=== PATIENT | male | born 1970 | race Caucasian/White ===

== ENCOUNTER → 2017-02-02 | Outpatient (CLI) | payer OTHER ==
[2017-02-02 13:09] LABS: Blood Urea Nitrogen 18 mg/dL (9-20); Non-African American GFR(MDRD) >60 (>60 ml/min/1.73 sqM)
--- NOTE | 2017-02-02 14:35 | CT ---
EXAMINATION TYPE: CT ChestAbdPelvis w con DATE OF EXAM: 02/02/2017 2:14 PM COMPARISON: May 01, 2011 HISTORY: Patient complains of generalized weakness, fatigue, lightheadedness, and weight loss. CT DLP: 1883 mGycm CONTRAST: CT scan of the chest, abdomen and pelvis is performed with Oral Contrast and with IV Contrast, patien t injected with 100 mL of Omnipaque 300. CT Chest: LUNGS: The lungs are clear and free of infiltrate or atelectasis. No pulmonary nodule or mass is det ected. No pleural effusion or CT evidence of interstitial lung disease. MEDIASTINUM: Thoracic aorta is of normal caliber. The heart is not enlarged. No evidence for media stinal mass or adenopathy. HILAR STRUCTURES: No evidence for mass. No hilar adenopathy is appreciated. OTHER: Mild bilateral gynecomastia. CONTRAST CT ABDOMEN AND PELVIS FINDINGS: LIVER/GB: There is evidence of hepatic steatosis. No calcified gallstones. No space occupying hepat ic lesion. Biliary tree is of normal caliber. PANCREAS: No inflammation. No distinct mass. SPLEEN: No splenic enlargement. No lesion seen. ADRENALS: No nodule. No thickening. KIDNEYS/BLADDER: No hydronephrosis. No nephrolithiasis. No disctinct renal mass. There is urinary bladder wall thickening which may reflect a cystitis. Correlate clinically. BOWEL: Normal appendix. Normal bowel caliber. No inflammation. GENITAL ORGANS: No gross abnormality. LYMPH NODES: No greater than 1cm abdominal or pelvic lymph nodes are appreciated. AORTA: No significant abnormality. OSSEOUS STRUCTURES: Postoperative and degenerative changes lumbar spine. OTHER: No significant additional abnormality is seen. IMPRESSION: 1. Mild urinary bladder wall thickening may reflect cystitis. 2. Hepatic steatosis. 3. Mild gynecomastia.
== END | disposition home or self-care (01) ==
LOC: RADCTMAIN 12:19
PROVIDERS: ATTEND Internal Medicine Hematology & Oncology
DX: N32.89 Other specified disorders of bladder (principal); K76.0 Fatty (change of) liver, not elsewhere classified; N62 Hypertrophy of breast; R07.9 Chest pain, unspecified; Z88.1 Allergy status to other antibiotic agents; Z88.2 Allergy status to sulfonamides; Z91.040 Latex allergy status
CPT/HCPCS: 82565; 84520; 71260; 74177; 36415; Q9967

== ENCOUNTER → 2017-06-10 | Outpatient (CLI) | payer OTHER ==
[2017-06-10 13:18] VITALS: BP 129/83; PULSE 73; RESP 16; TEMP 98.2
--- NOTE | 2017-06-10 13:33 | P.HPIM ---
History of Present Illness H&P Date: 06/10/17 Chief Complaint: neck and low back pain This is a 46-year-old patient referred by Dr. Jones for chronic pain in neck and right arm (and low back and LLE, but less severe). Patient has been taking medications from primary care physician including Varney medications with some relief. Patient denies adverse drug effects from medications. Patient also denies new-onset weakness, bowel/bladder incontinence, or any other signs or symptoms of cauda equina syndrome. There are no signs of acute intoxication, and no indications of medication diversion or overuse. Patient notes that pain worsens significantly with neck flexion and lateral rotation and improves with neck extension and medication and use of marijuana. Patient has used several types of medications for pain, including NSAIDS, MARIJUANA, OPIOIDS (Varney) and BENZODIAZEPINES. Patient HAS had surgery (L-spine, not C-spine). Patient HAS had injections previously (TPI by Tasha). Patient HAS NOT had physical therapy recently. In addition to above, 13-point review of systems is also negative for chest pain , shortness of breath, changes in vision, changes in hearing, new onset weakness , abdominal pain, diarrhea, extreme fatigue, malaise, fever, skin changes, homicidal or suicidal ideation, or bowel or bladder incontinence. 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 Neuro: CN II-XII grossly intact, muscle strength lower extremities PRESERVED Medications and Allergies Home Medications Medication Instructions Recorded Confirmed Type Atomoxetine HCl [Strattera] 40 mg PO DAILY 06/10/17 06/10/17 History Citalopram Hydrobromide [CeleXA] 40 mg PO DAILY 06/10/17 06/10/17 History Hydrocodone/Acetaminophen [[place] 1 tab PO TID 06/10/17 06/10/17 History 7.5-325] OLANZapine [ZyPREXA] 20 mg PO DAILY 06/10/17 06/10/17 History risperiDONE [RisperDAL] 0.5 mg PO TID 06/10/17 06/10/17 History traZODone HCL 50 mg PO DAILY 06/10/17 06/10/17 History Allergies Allergy/AdvReac Type Severity Reaction Status Date / Time clindamycin Allergy Rash/Hives Verified 06/10/17 12:58 sulfamethoxazole Allergy Dyspnea Verified 06/10/17 12:59 [From Bactrim] trimethoprim [From Bactrim] Allergy Dyspnea Verified 06/10/17 12:59 Results Comments: MRI lumbar spine without contrast dated 12/14/2015 demonstrates postsurgical changes with prior intra-articular stabilization screws placed at L4, L5, and S1 there is mild hypertrophic changes with posterior facets at the L3-L4 and L4- L5 levels. MRI of the cervical spine dated 12/14/2015 demonstrates a circumferential discogenic protrusion posteriorly at the C6-C7 level without cord compression or displacement. There are prominent osteophytic spurs projecting anteriorly and posteriorly from the inferior endplates of the sixth cervical vertebra. There is no syrinx. X-ray of the lumbar spine dated 08/24/2014 demonstrates postop changes noted at the L4-L5 and S1 levels status post posterior fusion there is intervertebral space material present at the L4-L5 level and loss of disc height at the L5-S1 level. There is multilevel spondylosis. Assessment and Plan (1) Lumbar postlaminectomy syndrome Status: Chronic (2) Spondylosis of lumbar region without myelopathy or radiculopathy Status: Chronic (3) Cervical disc herniation Status: Chronic Plan: 1. Explanation: Opioid and psychological risk scores were reviewed. Diagnoses , prognoses, and multiple treatment options including but not limited to physical therapy, interventional therapies, adjuvant medical therapies, narcotic medication therapies, and surgery were discussed with the patient and all questions were answered to the patient's satisfaction. 2. Opioid agreement: no opioids prescribed today 3. Counseling: The patient was counseled extensively on SMOKING CESSATION, BODY MASS INDEX, EXERCISE. Specifically, the patient was instructed regarding the importance of smoking cessation, weight control, and exercise in the context of both chronic pain and overall health. 4. Procedures: cervical MINA series C7-T1 5. Consultations: none 6. Investigations: none 7. Medications: none prescribed 8. Disposition: f/u for procedure as scheduled PQRS measures: 1-Patient's medications are documented in the chart. 2-Tobacco use is positive, counseling given 3-Patient has not had a pneumococcal vaccine. 4-Advanced care planning discussed, patient unable to give. 5-Opioid contract NOT signed with the patient. 6-Pain positive, follow-up visit or procedure scheduled 7-Patient's blood pressure measured and documented, and patient will follow up with the primary care due to hypertension. 8-Patient's weight was measured, and body mass index ABOVE the normal limits, and counseling was done. Patient instructed to follow up with PCP. 9-Patient WAS NOT identified as an unhealthy alcohol user. Time with Patient: Greater than 30
== END | disposition home or self-care (01) ==
LOC: PNWHC3 12:40
PROVIDERS: ATTEND Anesthesiology
DX: M50.20 Other cervical disc displacement, unspecified cervical region (principal); M47.816 Spondylosis without myelopathy or radiculopathy, lumbar region; M96.1 Postlaminectomy syndrome, not elsewhere classified; Z88.1 Allergy status to other antibiotic agents; Z88.2 Allergy status to sulfonamides; Z79.899 Other long term (current) drug therapy
CPT/HCPCS: 99211

== ENCOUNTER 2017-09-16 17:12 | Emergency (ER) | payer OTHER ==
[2017-09-16 17:19] VITALS: BP 143/84; PULSE 86; RESP 18; TEMP 97.9
[2017-09-16] MEDS ORDERED: ORPHENADRINE 30 MG/ML 2 ML VIAL IM STA (17:47)
[2017-09-16] MEDS ORDERED: KETOROLAC 30 MG/ML 1 ML VIAL IM STA (17:47)
--- NOTE | 2017-09-16 17:49 | ED ---
Back Pain HPI - General Chief Complaint: Back Pain/Injury Stated Complaint: Back pain Time Seen by Provider: 09/16/17 17:27 Source: patient Limitations: no limitations - History of Present Illness Initial Comments: 47-year-old male patient presents to the emergency department today for evaluation of lower back pain. 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 He states that the morning after shoveling he woke with muscle tightness and pain across his lower back. He states that he does have a history of chronic low back pain and has had surgery before. He states that he has had symptoms similar to this but is been a long time. He states that the pain does radiate down both legs mostly to the right side. He states he does have some chronic numbness and tingling to the right lower leg and foot, this has not changed. He states pain worsens with movement, sitting up , or standing. Pain improves with lying flat. He denies any saddle anesthesia. Denies any loss of bowel or bladder control. Denies any falls or injury to the low back causing symptoms. Patient denies any recent rash, fever, chills, shortness breath, chest pain, abdominal pain, nausea, vomiting, diarrhea, constipation, dizziness, weakness, hematuria, dysuria, urinary urgency, urinary frequency, headache, visual changes, or any other complaints. - Related Data Home Medications Medication Instructions Recorded Confirmed Atomoxetine HCl [Strattera] 40 mg PO DAILY 06/10/17 06/10/17 Citalopram Hydrobromide [CeleXA] 40 mg PO DAILY 06/10/17 06/10/17 Hydrocodone/Acetaminophen [[place] 1 tab PO TID 06/10/17 06/10/17 7.5-325] OLANZapine [ZyPREXA] 20 mg PO DAILY 06/10/17 06/10/17 risperiDONE [RisperDAL] 0.5 mg PO TID 06/10/17 06/10/17 traZODone HCL 50 mg PO DAILY 06/10/17 06/10/17 Previous Rx's Medication Instructions Recorded Cyclobenzaprine [Flexeril] 10 mg PO TID #15 tab 09/16/17 Hydrocodone/Acetaminophen [[place] 1 tab PO Q6HR PRN #15 tab 09/16/17 5-325] Ibuprofen [Motrin] 600 mg PO Q8HR PRN #30 tab 09/16/17 Allergies Allergy/AdvReac Type Severity Reaction Status Date / Time clindamycin Allergy Rash/Hives Verified 09/16/17 17:16 sulfamethoxazole Allergy Dyspnea Verified 09/16/17 17:16 [From Bactrim] trimethoprim [From Bactrim] Allergy Dyspnea Verified 09/16/17 17:16 Review of Systems ROS Statement: Those systems with pertinent positive or pertinent negative responses have been documented in the HPI. ROS Other: All systems not noted in ROS Statement are negative. Past Medical History Past Medical History: Diabetes Mellitus Additional Past Medical History / Comment(s): bipolar. Diet-controlled diabetic History of Any Multi-Drug Resistant Organisms: None Reported Past Surgical History: Back Surgery Additional Past Surgical History / Comment(s): Multiple back surgeries; fusion of L4-5, L5-S1 Replacement at L4-5 2006. Laminectomy - 1998 Past Psychological History: ADD/ADHD, Anxiety, Bipolar, Depression Smoking Status: Current every day smoker Past Alcohol Use History: None Reported Past Drug Use History: Marijuana General Exam Limitations: no limitations General appearance: alert, in no apparent distress, other (This is a well- developed, well-nourished adult male patient in no acute distress. Vital signs upon presentation are temperature 97.9F, pulse 86, respirations 18, blood pressure 143/84, pulse ox 97% on room air.) Eye exam: Present: normal appearance, PERRL, EOMI. Absent: scleral icterus, conjunctival injection, periorbital swelling ENT exam: Present: normal exam, normal oropharynx, mucous membranes moist Neck exam: Present: normal inspection. Absent: tenderness, meningismus, lymphadenopathy Respiratory exam: Present: normal lung sounds bilaterally. Absent: respiratory distress, wheezes, rales, rhonchi, stridor Cardiovascular Exam: Present: regular rate, normal rhythm, normal heart sounds. Absent: systolic murmur, diastolic murmur, rubs, gallop, clicks GI/Abdominal exam: Present: soft, normal bowel sounds. Absent: distended, tenderness, guarding, rebound, rigid Extremities exam: Present: other (Skin to the lower chart is pink, warm, and dry. Cap refill less than 3 seconds. Pedal and posttibial pulses are 2+ and equal bilaterally.) Back exam: Present: normal inspection, paraspinal tenderness (Surrounding the upper lumbar vertebrae.), other (Positive straight leg test bilateral) Neurological exam: Present: alert, oriented X3, CN II-XII intact Psychiatric exam: Present: normal affect, normal mood Skin exam: Present: warm, dry, intact, normal color. Absent: rash Course Vital Signs 09/16/17 17:16 Temperature 97.9 F Pulse Rate 86 Respiratory 18 Rate Blood Pressure 143/84 O2 Sat by Pulse 97 Oximetry Medical Decision Making - Medical Decision Making 47-year-old male patient presented to the emergency department today for evaluation of lower back pain. Patient physical examination does reveal positive straight leg test bilaterally. Patient also exhibits paraspinal tenderness surrounding the upper lumbar vertebra. Patient does have a history of chronic lower back pain, states he has had symptoms similar to this in the past but has been some time. Patient is neurologically intact. No loss of bowel or bladder control, no saddle anesthesia. He is able to ambulate but with pain. He will be given IM Toradol and Norflex here in the department. He' ll be given prescriptions for pain management as well as muscle relaxers. 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 He is instructed to follow-up with his primary care physician for recheck in 1-2 days. He is instructed to return here immediately for any new, worsening, or concerning symptoms. He verbalizes understanding and agrees with this plan. Disposition Clinical Impression: Acute exacerbation of chronic low back pain Disposition: HOME SELF-CARE Condition: Good Instructions: Acute Low Back Pain (ED) Additional Instructions: Apply muscle rubs and warm compresses to the painful areas. Gentle range of motion exercises. Establishing keep appointment with pain management. Take medications as directed. Return here immediately for any new, worsening, or concerning symptoms. Prescriptions: Cyclobenzaprine [Flexeril] 10 mg PO TID #15 tab Hydrocodone/Acetaminophen [[place] 5-325] 1 tab PO Q6HR PRN #15 tab PRN Reason: Pain Ibuprofen [Motrin] 600 mg PO Q8HR PRN #30 tab PRN Reason: Pain Referrals: Luz Jones MD [Primary Care Provider] - 1-2 days Time of Disposition: 17:49
== END 2017-09-16 18:04 | disposition home or self-care (01) ==
LOC: EC 17:12
DX: M54.5 Low back pain (principal); G89.29 Other chronic pain; R20.0 Anesthesia of skin; R20.2 Paresthesia of skin; F90.9 Attention-deficit hyperactivity disorder, unspecified type; F32.9 Major depressive disorder, single episode, unspecified; F41.9 Anxiety disorder, unspecified; F17.200 Nicotine dependence, unspecified, uncomplicated; Z98.890 Other specified postprocedural states; Z79.891 Long term (current) use of opiate analgesic; Z79.899 Other long term (current) drug therapy; Z88.1 Allergy status to other antibiotic agents; Z88.2 Allergy status to sulfonamides; X50.9XXA Other and unspecified overexertion or strenuous movements or postures, initial encounter; Y92.69 Other specified industrial and construction area as the place of occurrence of the external cause; Y93.H1 Activity, digging, shoveling and raking
CPT/HCPCS: 99283; 96372 ×2; J2360; J1885

== ENCOUNTER → 2020-04-03 | Outpatient (CLI) | payer OTHER ==
--- NOTE | 2020-04-03 14:09 | XR ---
EXAM TYPE: LUMBAR SPINE X RAY SERIES COMPARISON: 08/24/2014 HISTORY: Lower back pain and numbness TECHNIQUE: 8 views are submitted including flexion-extension lateral views. FINDINGS: Postsurgical changes noted involving the lower lumbar spine. No evidence of spondylolisthesis. Degene rative disc disease L2-3 and L3-L4. Upon flexion and extension alignment appears to be stable as visualized. Foraminal encroachment at L4 -5 and L5-S1 as well as L3-L4 suspected. Vascular calcifications are seen. No compression deformities . IMPRESSION: 1. Postsurgical changes. 2. Multilevel degenerative disc disease.
== END | disposition home or self-care (01) ==
LOC: RADXRMAIN 13:38
PROVIDERS: ATTEND Neurological Surgery
DX: M51.36 Other intervertebral disc degeneration, lumbar region (principal); M43.26 Fusion of spine, lumbar region; Z98.890 Other specified postprocedural states
CPT/HCPCS: 72114

== ENCOUNTER → 2020-05-18 | Outpatient (CLI) | payer OTHER ==
--- NOTE | 2020-05-18 13:41 | MR ---
EXAMINATION TYPE: MR lumbar spine wo con DATE OF EXAM: 05/18/2020 1:10 PM COMPARISON: 12/14/2015 HISTORY: Fusion of spine, lumbar region Multiplanar, MultiSpin echo imaging of the lumbar spine was performed. L1-L2: Normal disc appearance without desiccation. No herniation, protrusion or disc bulging. No ca nal stenosis is present. Foramina are patent bilaterally. L2-L3: Normal disc appearance without desiccation. No herniation, protrusion or disc bulging. No ca nal stenosis is present. Foramina are patent bilaterally. L3-L4: Normal disc appearance without desiccation. No herniation, protrusion or disc bulging. No ca nal stenosis is present. Foramina are patent bilaterally. L4-L5: Postsurgical changes of lumbar fusion and lumbar laminectomy noted. Pedicular screws are in pl minda. Alignment is anatomic. No evidence for recurrent or residual disease. No central stenosis. Radha vickie are patent bilaterally. L5-S1: Decompressive laminectomy changes. Pedicular screws are in place. Moderate disc desiccation wi th posterior disc bulge and osseous ridging resulting in left lateral recess stenosis. Mild bilateral right greater than left foraminal encroachment. Lumbar segments are intact. No paraspinal masses are identified. Conus medullaris has a normal appe arance. IMPRESSION: 1. Able postoperative appearance L4-5 and L5-S1. 2. Posterior disc bulge and ridging at L5 resulting in left lateral recess stenosis.
== END | disposition home or self-care (01) ==
LOC: RADMRIMAIN 12:33
PROVIDERS: ATTEND Neurological Surgery
DX: M51.26 Other intervertebral disc displacement, lumbar region (principal); M48.061 Spinal stenosis, lumbar region without neurogenic claudication; Z98.1 Arthrodesis status
CPT/HCPCS: 72148

== ENCOUNTER → 2020-07-11 | Outpatient (CLI) | payer OTHER ==
--- NOTE | 2020-07-11 17:20 | XR ---
EXAMINATION TYPE: XR cervical spine w flex/ext DATE OF EXAM: 07/11/2020 TECHNIQUE: Frontal, lateral neutral/flexion/extension, oblique, and open mouth view of the cervical s pine are obtained. HISTORY: M48.062 Spinal Stenosis Lumbar region . History of C5-C6 fusion September 2019. Injury a few weeks ago with pain and numbness right side of neck into right hand since incident. COMPARISON: Cervical radiograph 08/24/2014. FINDINGS: Anterior fusion device of C6-C7 with interbody spacer device. On swimmer's view of the cerv ical spine is seen entirety through the level of T1. On lateral view the cervical spine is incomplete ly visualized from C1 thru the C6 level, and the shoulders are obscuring the C6-T1 vertebral bodies o n lateral neutral/flexion/extension views. There is minimal grade 1 anterolisthesis of C3 on C4 which is unchanged with flexion and extension. Normal alignment without evidence of acute fracture or disl ocation. The pre-vertebral soft tissue appears within normal limits. Neural foramina demonstrate bony encroachment at C3-C4 and C6-C7 on the right, and C6-C7 on the left. The atlantoaxial relationship i s within normal limits on the open mouth view. IMPRESSION: 1. No acute fracture or dislocation is seen in the cervical spine. 2. Anterior fusion of C6-C7. The shoulders obscure this level on flexion and extension views and the refore instability is not assessed at this level. 3. Grade 1 anterolisthesis of C3 on C4, unchanged with flexion and extension. 4. Bilateral neural foramina bony encroachment as above.
== END | disposition home or self-care (01) ==
LOC: RADXRMAIN 13:33
PROVIDERS: ATTEND Neurological Surgery
DX: M48.062 Spinal stenosis, lumbar region with neurogenic claudication (principal); Z98.1 Arthrodesis status
CPT/HCPCS: 72052

== ENCOUNTER 2020-12-02 15:41 | Inpatient (IN) | payer OTHER ==
[~2020-12-02 15:41] MED LIST changes: -BENZOCAINE/MENTHOL LOZENG 1 EACH LOZENGE MUCOUS MEM PRN; -HYDROcodone/APAP 5-325MG 1 EACH TAB PO PRN; -HYDROmorphone 0.5 MG/0.5 ML SYRINGE IVP PRN; -HYDROmorphone 1 MG/ML 1 ML SYRINGE IVP PRN; -HYDROmorphone 2 MG/ML 1 ML SYRINGE IVP PRN; -NON FORMULARY DRUG (Citalopram Hydrobromide [Celexa] 40 MG Tablet) PO SCH; -OLANZAPINE 20 MG PO SCH; -ONDANSETRON 4 MG/2 ML VIAL IVP PRN; -SENNOSIDES-DOCUSATE SODIUM 1 EACH TAB PO SCH; -SODIUM CHLORIDE 0.9% 1,000 ML IV SCH; -VANCOMYCIN IV PER PHARMACY 1 EACH MISC MISCELLANE PRN; +ceFAZolin 3,000 MG in SODIUM CHLORIDE 0.9% IRRIGATIO 3,000 ML IRRIGATION PRN; -diazePAM 5 MG TAB PO PRN
[2020-12-02] MEDS ORDERED: ONDANSETRON 4 MG/2 ML VIAL ONE (16:01)
[2020-12-02] MEDS ORDERED: LACTATED RINGERS 1,000 ML IV ONE ×2 (16:15→19:35)
[2020-12-02] MEDS ORDERED: ONDANSETRON 4 MG/2 ML VIAL IVP ONE (16:15)
[2020-12-02] MEDS ORDERED: DEXAMETHASONE SOD PHOSPHATE 4 MG/ML 1 ML VIAL IVP ONE (16:16)
[2020-12-02] MEDS ORDERED: MIDAZOLAM 2 MG/2 ML VIAL ONE (18:48)
[2020-12-02] MEDS ORDERED: SUCCINYLCHOLINE CHLORIDE 100 MG/5 ML SYR IV ONE (18:48)
[2020-12-02] MEDS ORDERED: GLYCOPYRROLATE 0.2 MG/ML 2 ML VIAL ONE (18:48)
[2020-12-02] MEDS ORDERED: LIDOCAINE 1% INJ 10MG/ML (20 ML MDV) ONE (18:48)
[2020-12-02] MEDS ORDERED: VANCOMYCIN 1,000 MG VIAL ONE (18:48)
[2020-12-02] MEDS ORDERED: fentaNYL (PF) 50 MCG/ML 2 ML AMP ONE (18:48)
[2020-12-02] MEDS ORDERED: ALBUTEROL HFA INHALER INHALATION ONE (18:48)
[2020-12-02] MEDS ORDERED: NALOXONE 0.4 MG/ML 1 ML VIAL ONE (18:48)
[2020-12-02] MEDS ORDERED: HYDROmorphone (PF) 1 MG/ML ONE (18:48)
[2020-12-02] MEDS ORDERED: NEOSTIGMINE 1 MG/ML 10 ML VIAL ONE (18:48)
[2020-12-02] MEDS ORDERED: PROPOFOL 10 MG/ML 20 ML VIAL IV ONE (18:48)
[2020-12-02] MEDS ORDERED: ROCURONIUM 10 MG/ML (5 ML VIAL) IV ONE (18:48)
[2020-12-02] MEDS ORDERED: HYDROmorphone 0.5 MG/0.5 ML SYRINGE IVP ONE (21:50)
[2020-12-02] MEDS ORDERED: HYDROmorphone 2 MG/ML 1 ML SYRINGE IVP PRN (23:38)
[2020-12-02] MEDS ORDERED: diazePAM 5 MG TAB PO PRN (23:40)
[2020-12-02] MEDS ORDERED: NALOXONE 0.4 MG/ML 1 ML VIAL IVP PRN (23:42)
[2020-12-03] MEDS: HYDROmorphone 1 MG/ML 1 ML SYRINGE IVP PRN ×4 (00:33→19:18)
[2020-12-03] MEDS: SODIUM CHLORIDE 0.9% 1,000 ML IV SCH ×2 (00:45→07:01)
--- NOTE | 2020-12-03 06:33 | XR ---
EXAMINATION TYPE: XR lumbar spine 2 or 3V DATE OF EXAM: 12/02/2020 CLINICAL HISTORY: Lumbar spine surgery today. TECHNIQUE: Portable frontal crosstable lateral view of lumbar spine obtained immediately intraoperati vely. COMPARISON: Lumbar spine x-ray April 03, 2020. FINDINGS: There is interval removal of posterior interpedicular rods and screws transfixing L4-S1 lev els. Persistent artificial disc material L4-L5 level. Moderate disc space narrowing L5-S1 level redem onstrated. Alignment is stable and satisfactory. IMPRESSION: As above.
[2020-12-03] MEDS: SENNOSIDES 8.6 MG TAB PO SCH (06:59)
[2020-12-03] MEDS: HYDROcodone/APAP 7.5-325MG 1 EACH TAB PO PRN ×3 (08:39→23:11)
[2020-12-03] MEDS ORDERED: CITALOPRAM HYDROBROMIDE 20 MG TAB PO SCH (09:00)
[2020-12-03] MEDS ORDERED: VANCOMYCIN 1,750 MG in SODIUM CHLORIDE 0.9% 500 ML 500 ML IVPB ONE (09:00)
[2020-12-03] MEDS ORDERED: VANCOMYCIN IV PER PHARMACY 1 EACH MISC MISCELLANE PRN (09:00)
[2020-12-03] MEDS ORDERED: OLANZapine 10 MG TAB PO SCH (09:00)
--- NOTE | 2020-12-03 09:00 | P.PN ---
Progress Note - Text Progress Note Date: 12/03/20 Orthopedic Spine: History of present illness: Patient is a pleasant 50-year-old male who is seen and examined at the bedside following removal of lumbosacral hardware with irrigation and debridement at the lumbosacral spine and left gluteu. Patient states he is doing well postsurgically. He was able to ambulate to the restroom last night. He is ambulating multiple times without significant difficulty. He has some pain at the surgical site the states it is well-controlled. He's not currently complaining of a lower extremity weakness or radiculopathy. He is able to move his legs independently. He is having some saturation of his dressing which has been reinforced. He is currently being seen by medicine at the bedside. Currently does not complain of nausea, vomiting, fever, or chills. Patient states pain has been adequately controlled. Patient is eating and voiding freely without difficulty. He has no complaints at the bedside. Patient is currently waiting for consultation with infectious disease as well as medicine. Patient is currently on vancomycin IV. Culture results taken during surgical intervention are pending. We also discussed with medicine to obtain a cooling machine. Physical Exam Lumbar Fusion: Status post surgical day number 1 Patient is awake, alert, and oriented 3 Vital signs stable Good chest excursion with deep inspiration and expiration Dorsiflexion, plantarflexion, and extensor hallucis longus positive sustained bilaterally No signs or symptoms of DVT; no calf pain; pneumatic cuffs not currently intact bilateral lower extremities Dressing is saturated; no erythema, purulence, or signs of infection Dressing is removed and new dressing is applied during physical examination with nonstick Telfa, 4 x 4, ABDs, and tape Some slow active drainage from the surgical site which appears to be blood; no purulent discharge from the surgical site Iodoform gauze and desmond remain intact at the surgical site Patient is able to perform adequate range of motion bilateral lower extremities without difficulty Neurovascularly intact bilaterally lower extremities Assessment: Status post removal of lumbosacral hardware Status post irrigation and debridement of lumbosacral spine infection and left gluteal infection History of L4-5 and L5-S1 lumbar fusion in 2007 Low back pain Hypertension Impression Plan: 1. Ambulate as tolerated; work with Physical Therapy to increase mobilization 2. Continue pain control with IV and oral medications 3. Dressing has been removed and changed to nonstick Telfa, 4 x 4, ABDs and tape; we will continue with dressing changes as needed; will also plan to obtain cooling machine 4. Consultation has been placed with medicine for medical management for patient's other medical diagnoses 5. Consultation has been placed with infectious disease; patient currently on vancomycin; IV antibiotic medication may be change at the discretion of infectious disease; cultures are currently pending 6. We will continue to follow the patient closely; we discussed patient will most likely remain the hospital over the next several days as we will wait for culture results and patient will most likely be discharged home with a PICC line intact 7. Patient can follow-up with Guy Saucedo PA-C or Dr. Sathish Washburn at [facility] in 2-3 weeks following discharge
--- NOTE | 2020-12-03 11:27 | P.CONS ---
History of Present Illness - Reason for Consult Consult date: 12/03/20 Medical management - History of Present Illness HISTORY OF PRESENT ILLNESS This is a 50-year-old male patient of Dr. Engel with past history of asthma, bipolar disorder, chronic back pain with multiple back surgeries. Patient was admitted under the care of Dr. Washburn and underwent removal of lumbar sacral hardware with irrigation debridement of a lumbar sacral spine and left gluteal abscess. Patient is postop day #1. Patient states that he continues to have pain to the area of a 7-8 out of 10 with medication. He does have numbness and tingling to the left most the time. He states this started as a bump that he felt on his left lateral lumbar region but was very tender and it enlarged to the point of the size of a grapefruit. He denies any fever or chills. He states he has pressure back pain that radiates down his legs. He states he has been losing balance which is new for him and he is utilizing a cane for ambulation. Patient is currently on vancomycin and consult in place with infectious disease. Cultures are in progress. Lab work from December 02 was CBC and a CMP which were unremarkable. Urinalysis was clear and negative for infection. EKG was a sinus bradycardia. REVIEW OF SYSTEMS Constitutional: No fever, no chills, no night sweats. No weight change. No weakness, fatigue or lethargy. No daytime sleepiness. EENT: No headache. No blurred vision or double vision, no loss of vision. No loss of Hearing, no ringing in the ears, no dizziness. No nasal drainage or congestion. No epistaxis. No sore throat. Lungs: No shortness of breath, cough, no sputum production. No wheezing. Cardiovascular: No chest pain, no lower extremity edema. No palpitations. No paroxysmal nocturnal dyspnea. No orthopnea. No lightheadedness or dizziness. No syncopal episodes. Abdominal: No abdominal pain. No nausea, vomiting. No diarrhea. No constipation. No bloody or tarry stools.. No loss of appetite. Genitourinary: No dysuria, increased frequency, urgency. No urinary retention. Musculoskeletal: No myalgias. No muscle weakness, no gait dysfunction, no frequent falls. Reports back pain. No neck pain. Integumentary: Reports wounds, no lesions. No rash or pruritus. No unusual bruising. No change in hair or nails. Neurologic: No aphasia. No facial droop. No change in mentation. No head injury. No headache. No paralysis. No paresthesia. Psychiatric: No depression. No anxiety. No mood swings. Endocrine: No abnormal blood sugars. No weight change. No excessive sweating or thirst. No cold intolerance. SOCIAL HISTORY Patient is a smoker one to 2 small cigarettes per day for the past 3 years. He denies any alcohol use. Is currently unemployed due to back problems. 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 He lives at home with his mother. There are no steps in the home.. FAMILY HISTORY Mother is alive with history of hypertension, diabetes. No history of coronary artery disease. Father at age 56 from coronary artery disease. Patient has 1 brother with no major medical problems. He has 2 daughters with no major medical problems. PHYSICAL EXAMINATION Gen: This is a 50-year-old male. He is resting in bed laying on his right side. He appears to be in no acute distress. HEENT: Head is atraumatic, normocephalic. Pupils equal, round. Sclerae is anicteric. NECK: Supple. No JVD. No lymphadenopathy. No thyromegaly. LUNGS: Clear to auscultation. No wheezes or rhonchi. No intercostal retracti ons. HEART: Regular rate and rhythm. No murmur. ABDOMEN: Soft. Bowel sounds are present. No masses. No tenderness. BACK: Large dressing in place of the lumbar area that is saturated with serosanguineous fluid. EXTREMITIES: No pedal edema. No calf tenderness. NEUROLOGICAL: Patient is awake, alert and oriented x3. Cranial nerves 2 through 12 are grossly intact. ASSESSMENT AND PLAN 1. Status post removal of lumbar sacral hardware with irrigation debridement of a lumbar sacral spine and left gluteal abscess, postop day #1. Patient is currently on vancomycin. Consult with infectious disease. Cultures are in progress. Pain management and activity per orthopedics. 2. Bipolar disorder. Patient resumed on Zyprexa 20 mg at bedtime and Celexa 40 mg at bedtime. 3. Mild intermittent asthma. Stable without exacerbation. 4. GI prophylaxis. Protonix. 5. DVT prophylaxis. Heparin subcu, start tomorrow if okay with orthopedics. DISCHARGE PLAN Home with [facility] and IV antibiotics. Impression and plan of care have been directed as dictated by the signing physician. Roselia Echevarria nurse practitioner acting as scribe for signing physician. Past Medical History Past Medical History: Diabetes Mellitus Additional Past Medical History / Comment(s): bipolar. Diet-controlled diabetic History of Any Multi-Drug Resistant Organisms: None Reported Past Surgical History: Back Surgery Additional Past Surgical History / Comment(s): Multiple back surgeries; fusion of L4-5, L5-S1 Replacement at L4-5 2006. Laminectomy - 1998 Past Psychological History: ADD/ADHD, Anxiety, Bipolar, Depression Smoking Status: Current every day smoker Past Alcohol Use History: None Reported Past Drug Use History: Marijuana Medications and Allergies Home Medications Medication Instructions Recorded Confirmed Type Citalopram Hydrobromide [CeleXA] 40 mg PO DAILY 06/10/17 12/02/20 History Hydrocodone/Acetaminophen [[place] 1 tab PO TID 06/10/17 12/02/20 History 7.5-325] OLANZapine [ZyPREXA] 20 mg PO DAILY 06/10/17 12/02/20 History Ibuprofen [Motrin] 600 mg PO Q8HR PRN #30 tab 09/16/17 12/02/20 Rx Allergies Allergy/AdvReac Type Severity Reaction Status Date / Time clindamycin Allergy Rash/Hives Verified 12/02/20 16:06 Penicillins Allergy Unknown Verified 12/02/20 16:13 sulfamethoxazole Allergy Dyspnea Verified 12/02/20 16:06 [From Bactrim] trimethoprim [From Bactrim] Allergy Dyspnea Verified 12/02/20 16:06 Physical Exam Vitals: Vital Signs Temp Pulse Resp BP BP Pulse Ox 12/03/20 02:10 98.0 F 84 16 135/83 96 12/02/20 23:35 81 118/80 97 12/02/20 23:15 75 108/69 98 12/02/20 23:00 72 123/80 98 12/02/20 22:40 98.1 F 74 16 118/76 94 L 12/02/20 22:15 88 16 122/74 99 12/02/20 22:00 76 16 136/72 95 12/02/20 21:48 97.1 F L 76 16 153/82 96 12/02/20 15:59 97.9 F 75 18 119/83 97 Intake and Output 12/02/20 12/03/20 12/03/20 22:59 06:59 14:59 Intake Total 2101 Output Total 700 450 Balance 1401 -450 Intake: IV 1551 Oral 550 Output: Urine 500 450 Estimated Blood Loss 200 Other: # Voids 2 Weight 89.8 kg Results Labs: Microbiology - Last 24 Hours (Table) 12/02/20 21:00 Gram Stain - Preliminary Buttock Wound Culture - Preliminary 12/02/20 21:00 Gram Stain - Preliminary Buttock Wound Culture - Preliminary 12/02/20 21:00 Gram Stain - Preliminary Back Wound Culture - Preliminary 12/02/20 21:00 Anaerobic Culture - Preliminary Buttock 12/02/20 21:00 Fungal Culture - Preliminary Buttock 12/02/20 21:00 Fungal Culture - Preliminary Back 12/02/20 21:00 Anaerobic Culture - Preliminary Buttock 12/02/20 21:00 Fungal Culture - Preliminary Buttock 12/02/20 21:00 Anaerobic Culture - Preliminary Back
--- NOTE | 2020-12-03 12:26 | P.OP ---
Date of Procedure: 12/02/20 Preoperative Diagnosis: Paraspinal abscess and left gluteal abscess with infected hardware History of lumbar spinal fusion L4 to S1 12 years ago Low back pain Postoperative Diagnosis: Same with findings of solid fusion L4-S1 Anesthesia: GETA Pathology: other (Subcutis tissue one at the gluteal abscess and one at the deep spinal implant at S1 and along the vertebrae) Condition: stable Disposition: PACU Description of Procedure: BRIEF OPERATIVE NOTE Preoperative Diagnosis:Paraspinal abscess and left gluteal abscess with infected hardware History of lumbar spinal fusion L4 to S1 12 years ago Low back pain Postoperative Diagnosis:Paraspinal abscess and left gluteal abscess with infected hardware History of lumbar spinal fusion L4 to S1 12 years ago Low back pain Findings of solid fusion L4 to S1 Procedure: Irrigation and excisional debridement of left gluteal abscess 10 x 10 x 5 cm Irrigation and excisional debridement of paraspinal abscess L4 to S1 3 x 2 x 2 cm Removal of deep hardware L4 L5 S1 pedicle screws and rods found to be intact and in total Surgeon: Dr. Washburn Customs Examiner: Guy Lang is present throughout the entire the case persistence during positioning, dissection, exposure, visualization, and all crucial elements of the case as well as closure. Anesthesia: General anesthesia Estimated blood loss: Approximately 200 mL Complications: Findings of expected abscess, with specimen taken from subcutaneous culture gluteal abscess culture and deep spinal hardware culture Components implanted: No new implants but with removal of deep pedicle screws from L4-L5 and S1 with 6 screws to rods and cross-link Disposition: To recovery room in good stable condition. OPERATIVE INDICATIONS The patient has been having issues in their lower back and lower extremities. The patient has been having increasing low back pain over the past 6 months. He is known to our service as he had lumbar spine fusion from L4-S1 12 years ago with our service. He actually did adequately from his surgery and was able to return to his regular work. He says however over the past several years he has not been working. He was lost to follow-up and apparently had some increased pain at his lower back about 4 or 5 years ago and underwent epidural steroid injections at that point. He says that those did not give him significant relief. He had further injury decreased symptoms at his cervical spine one year ago and underwent surgical intervention with Dr. Britt. He says his neck has been doing well. Over the past 6 months he has been developing increasing pain in his lower back and toward his left gluteal area. He noticed some fullness and a mass at that area which had workup and evaluation and aspiration several weeks ago. The patient says that they found pus at the area and he was started on oral Keflex. He had referral back to Dr. Britt who sent him back to our service for further evaluation and treatment. He had significant workup which showed significant fluid collection for left gluteal area and extending toward the hardware at L5 and S1. We felt he had a paraspinal abscess and infected hardware with a medial abscess. He was not having any neurologic decline in the was no evidence of epidural extension. We scheduled him for urgent open irrigation and excisional debridement with removal of hardware as we felt that this would give the best chance of clearing the infection. His hardware appeared to be intact there was some haloing at the S1 screws but the fusion appeared to be stable particularly at the interbody space at L4 5. We discussed various treatment options including surgery, and the patient wishes to proceed with surgery We discussed the risk, patient's alternatives and benefits of s urgery including but not limited to, risk of bleeding risk of infection, risk of need for further surgery, risk of decreased, loss of motion, loss of function, nerve damage, paralysis, heart attack, blindness and . OPERATIVE SUMMARY After discussing all the risks, patient alternatives and benefits at length, the patient elected to proceed with surgical intervention, signed informed consent, and presented for their procedure. The patient was seen and examined in the preoperative holding area and the surgical site was marked. The patient was given antibiotics and brought to the operating room. He had been on oral Keflex for the past several weeks prior to presentation. The patient was sedated and intubated by anesthesia in standard fashion. The patient was positioned on to the operating room table in a prone position on the appropriate frame which was well-padded and well molded. We were careful to pad any bony prominences and pressure points. We were careful to maintain the patient's cervical spine and good neutral alignment and position throughout. The patient was prepped and draped in a normal standard fashion. An appropriate timeout and keystone protocol performed. We were able to proceed with the surgery. There was some erythema around the incision site approximately 3 x 2 cm at the inferior aspect of his prior incision. I made incision loosely his prior i ncision site. There was immediate pus at the subcutaneous space and we took a culture from this area was gross purulent deep yellow pus. I was able to dissect down further and there was significant scar tissue formation and secured seedling thick tissue without significant pliability. I was able to dissect over towards left side and we had a large pocket of pus from the gluteal area. It was approximately 60-80 mL of pus from that area. He has gross purulent. It did not seem to extend into the musculature but seemed to be deep subcutaneous space at the gluteus. It is proximally 10 x 10 x 6 cm. The wound was copiously irrigated and suctioned dry after these cultures were taken. When I had to excise some of the tissue and some of the denuded tissue from the area. This gave further clean base. I was able to then dissect further down after irrigation and suction. I dissected down through the thick scar tissue to the paraspinal space. I was able to expose the screw heads bilaterally and the cross-link from L4-S1. Further dissection revealed that there was a pocket of fluid at the the S1 screw on the right. This possibly 3 x 2 x 2 cm. Deep cultures around that screw and the Vertebral space were taken. I further expose the area there was significant bone formation and I was able to remove the hardware with the cross-link the rods and the screws at L4-L5 and S1. All the hardware is checked and found to be in total. There does not seem to be any extension of the purulence. On the paraspinal space. The wound was copiously irrigated and suctioned dry. There is no evidence of any epidural abscess. There is no motion between the vertebral bodies. I felt there was solid fusion. There did not seem to be any rent toward the epidural space and I did not explore the epidural space. I had to excise tissue and to do the tissue around the paravertebral space particularly around S1 on the right for appropriate excisional debridement. With this completed we again did copious irrigation and suction with greater than 3 L of irrigant. It appeared to be clean and dry without any further purulence or pus. We will to proceed with closure. The fascial layer was closed with #1 PDS TransFix. A subcutaneous iodoform gauze was placed at the gluteal pocket and the subcutaneous tissues closed with 2-0 PDS and the skin was closed with desmond leaving the iodoform gauze available to drain. The wound was cleaned and dried and dressed with Adaptic 4 x 4's ABDs and tape. incision was made at the midline longitudinally over the appropriate levels. Dissection was taken down subcutaneously to the level of the fascia which was split midline. Dissection was taken over the lamina. Intraoperative fluoroscopy was taken which showed a marker at the appropriate level. With the appropriate level positively confirmed, we were able to proceed with laminectomy. The wound was copiously irrigated and suctioned dry as had been done periodically throughout the case. I performed a laminectomy with a combination of curettes and a high-speed bur and Kerrison rongeurs. A small medial facetectomy was performed again further access. A partial foraminotomy was also performed. Portions of the ligamentum flavum were taken down to expose the dura and traversing nerve root. I was able to mobilize the traversing nerve root and gain access to the disc space. Note was made of obvious compression from the disc. Protecting the soft tissue structures, a small annulotomy was established. I was able to perform discectomy and remove any extruded disc fragments and any loose fragments from within the disc itself. There is some disc desiccation noted. I tried to preserve the disc annulus that appeared stable. There were no further extruded fragments noted. There is no evidence of dural tear or leak. Good hemostasis maintained. The wound was copiously irrigated and suctioned dry. Good decompression and discectomy was noted. The drapes were broken down. The patient was gently rolled back onto their hospital bed being careful to maintain their cervical spine and good neutral alignment and position. They were woken up by anesthesia, extubated, and br ought to the recovery room in good stable condition. The patient will be admitted to the hospital for appropriate postoperative care, infectious disease consultation, IV antibiotics, medical management and monitoring. We will continue to follow them closely about the postoperative course.
[2020-12-03] MEDS: VANCOMYCIN 1,500 MG in SODIUM CHLORIDE 0.9% 250 ML IVPB SCH ×2 (15:07→23:11)
[2020-12-03] MEDS: CITALOPRAM HYDROBROMIDE 20 MG TAB PO SCH (20:47)
[2020-12-03] MEDS: OLANZapine 10 MG TAB PO SCH (20:47)
--- NOTE | 2020-12-03 23:57 | CONS ---
CONSULTATION DATE OF SERVICE: 12/03/2020 REASON FOR CONSULTATION: Paraspinal abscess. HISTORY OF PRESENT ILLNESS: The patient is a 50-year-old male who is status post lumbar spinal fusion L4 to S1 12 years ago. The patient seemed to be having a problem with low back pain that has been going on for almost 6 months without any history of any trauma. He describes the pain to the back to be more of a dull aching to sharp almost 10/10 in severity with no weakness down the legs or bowel or bladder problems. No high-grade fever or chills. The patient has been evaluated in the outpatient setting by Orthopedics and the patient has been diagnosed with infected lumbosacral hardware and gluteal abscess to the left gluteal area. The patient is status post I and D of the left gluteal abscess,10 out of 10 and 2.5 cm, I and D, excision, debridement of the paraspinal abscess and removal of deep hardware. Culture has been obtained which is currently pending. Patient empirically started on antibiotics . Infectious disease was consulted for further management of antibiotic therapy. REVIEW OF SYSTEMS: Positive points have been mentioned in HPI. Rest of the systems are negative. PAST MEDICAL HISTORY: Chronic back pain, has bipolar disorder. PAST SURGICAL HISTORY: Multiple back surgeries including L4 to S1 fusion. SOCIAL HISTORY: The patient smokes according to respiratory. Denies drinking or drug use. FAMILY HISTORY: Mother history of diabetes and hypertension. ALLERGIES: TO CLINDAMYCIN, PENICILLIN, SULFA MEDICATIONS: Include the patient is currently on [place], heparin, Dilaudid, Narcan, Zyprexa, vancomycin, pharmacy to dose. PHYSICAL EXAMINATION: Blood pressure is 101/63, pulse of 73, temperature 98.5. She is 98% on room air. General description is a middle-aged male lying in bed in no distress. HEENT: Examination shows no pallor or scleral icterus. Oral mucous membranes dry. NECK: Trachea central. No thyromegaly. LUNGS: Unlabored breathing. Clear to auscultation with no wheeze or crackles HEART S1, S2. Regular rate and rhythm. ABDOMEN soft. No tenderness. No guarding. No rigidity. EXTREMITIES: No edema of the feet. SKIN examination: No rash or mass palpable. NEUROLOGICAL: Patient is awake, alert, oriented. Mood and affect normal. LABS: Cultures currently pending. DIAGNOSTIC IMPRESSION AND PLAN: Patient with lumbar paraspinal abscess with infected hardware with left gluteal abscess status post drainage of the abscess and removal of the hardware, likely from a gram- positive skin yaz less likely Gram-negative infection. PLAN: Vancomycin, pharmacy to dose, target of 15 while waiting for the culture to finalize. The patient likely will need a PICC line for outpatient IV antibiotic therapy. Continue supportive care. MMADRIL / PARMINDERN: [id number] / MTDD
[2020-12-04] MEDS: ACETAMINOPHEN TAB 325 MG TAB PO PRN ×2 (02:34→08:06)
[2020-12-04] MEDS: SODIUM CHLORIDE 0.9% 1,000 ML IV SCH ×2 (02:35→08:07)
[2020-12-04 07:52] LABS: African American GFR (CKD) >90 (>60 ml/min/1.73 sqM); Non-African American GFR(CKD) >90 (>60 ml/min/1.73 sqM)
[2020-12-04] MEDS: VANCOMYCIN 1,500 MG in SODIUM CHLORIDE 0.9% 250 ML IVPB SCH ×3 (08:05→23:30)
[2020-12-04] MEDS: HYDROmorphone 1 MG/ML 1 ML SYRINGE IVP PRN ×3 (08:06→19:07)
[2020-12-04] MEDS: PANTOPRAZOLE 40 MG TABLET PO SCH (08:06)
[2020-12-04] MEDS: SENNOSIDES 8.6 MG TAB PO SCH (08:06)
[2020-12-04] MEDS: HEPARIN SODIUM,PORCINE 5,000 UNIT/ML 1 ML VIAL SQ SCH ×2 (08:06→21:12)
[2020-12-04] MEDS ORDERED: ENOXAPARIN 40 MG/0.4 ML SYRINGE SQ SCH (09:00)
[2020-12-04 09:57] LABS: HCT 35.4 % (39.0-53.0); MCH 32.3 pg (25.0-35.0); MCHC 32.9 g/dL (31.0-37.0); MCV 97.9 fL (80.0-100.0); Mean Platelet Volume 7.3; Platelet Count 238 k/uL (150-450); RBC 3.61 m/uL (4.30-5.90); WBC 5.1 k/uL (3.8-10.6)
[2020-12-04 09:59] LABS: ALT 12 U/L (4-49); AST 19 U/L (17-59); African American GFR (CKD) >90 (>60 ml/min/1.73 sqM); Albumin 2.8 g/dL (3.5-5.0); Alkaline Phosphatase 48 U/L (38-126); Anion Gap 5 mmol/L; Blood Urea Nitrogen 8 mg/dL (9-20); Calcium 7.6 mg/dL (8.4-10.2); Carbon Dioxide 22 mmol/L (22-30); Chloride 109 mmol/L (98-107); Globulin 2.8 g/dL; Glucose 137 mg/dL (74-99); Non-African American GFR(CKD) >90 (>60 ml/min/1.73 sqM); Potassium 3.5 mmol/L (3.5-5.1); Sodium 136 mmol/L (137-145); Total Bilirubin 0.1 mg/dL (0.2-1.3); Total Protein 5.6 g/dL (6.3-8.2)
[2020-12-04 10:00] LABS: HGB 11.7 gm/dL (13.0-17.5)
--- NOTE | 2020-12-04 10:26 | P.PN ---
Progress Note - Text Progress Note Date: 12/04/20 Orthopedic Spine: History of present illness: Patient is a pleasant 50-year-old male who is seen and examined at the bedside following removal of lumbosacral hardware with irrigation and debridement at the lumbosacral spine and left gluteus. Patient states he is doing well postsurgically. He needs to be tinues to be ambulate to the restroom. He is ambulating multiple times without significant difficulty. He has some pain at the surgical site the states it is well-controlled. He's not currently complaining of a lower extremity weakness or radiculopathy. He is able to move his legs independently. He continues to have some saturation of his dressing which has been reinforced. Currently does not complain of nausea, vomiting, fever, or chills. He did experience some fevers over night. Medicine has ordered blood cultures. Patient states pain has been adequately controlled. Patient is eating and voiding freely without difficulty. He has no complaints at the bedside. Patient is currently waiting for consultation with infectious d isashwinie as well as medicine. Patient is currently on vancomycin IV. Culture results taken during surgical intervention are pending. We also discussed with medicine to obtain a cooling machine. He is being seen by medicine and infectious disease. Physical Exam Lumbar Fusion: Status post surgical day number 1 Patient is awake, alert, and oriented 3 Vital signs stable Good chest excursion with deep inspiration and expiration Dorsiflexion, plantarflexion, and extensor hallucis longus positive sustained bilaterally No signs or symptoms of DVT; no calf pain; pneumatic cuffs not currently intact bilateral lower extremities Dressing is saturated; no erythema, purulence, or signs of infection Dressing is removed and new dressing is applied during physical examination with nonstick Telfa, 4 x 4, ABDs, and tape Some slow active drainage from the surgical site which appears to be blood; no purulent discharge from the surgical site Iodoform gauze is removed; Farida remain intact at the surgical site Patient is able to perform adequate range of motion bilateral lower extremities without difficulty Neurovascularly intact bilaterally lower extremities Assessment: Status post removal of lumbosacral hardware Status post irrigation and debridement of lumbosacral spine infection and left gluteal infection History of L4-5 and L5-S1 lumbar fusion in 2007 Low back pain Hypertension Impression Plan: 1. Ambulate as tolerated; work with Physical Therapy to increase mobilization 2. Continue pain control with IV and oral medications 3. Dressing has been removed and changed to nonstick Telfa, 4 x 4, ABDs and tape; we will continue with dressing changes as needed; will also plan to obtain cooling machine 4. Patient will continue to be seen by medicine for medical management for patient's other medical diagnoses 5. Patient will continue to be seen by infectious disease; patient currently on vancomycin; IV antibiotic medication may be change at the discretion of infectious disease; cultures are currently pending; blood cultures pending 6. We will continue to follow the patient closely; we discussed patient will most likely remain the hospital over the next several days as we will wait for culture results and patient will most likely be discharged home with a PICC line intact 7. Patient can follow-up with Guy Saucedo PA-C or Dr. Sathish Washburn at [facility] in 2-3 weeks following discharge
--- NOTE | 2020-12-04 14:29 | P.PN ---
Subjective Progress Note Date: 12/04/20 HISTORY OF PRESENT ILLNESS This is a 50-year-old male patient of Dr. Engel with past history of asthma, bipolar disorder, chronic back pain with multiple back surgeries. Patient was admitted under the care of Dr. Washburn and underwent removal of lumbar sacral hardware with irrigation debridement of a lumbar sacral spine and left gluteal abscess. Patient is postop day #1. Patient states that he continues to have pain to the area of a 7-8 out of 10 with medication. He does have numbness and tingling to the left most the time. He states this started as a bump that he felt on his left lateral lumbar region but was very tender and it enlarged to the point of the size of a grapefruit. He denies any fever or chills. He states he has pressure back pain that radiates down his legs. He states he has been losing balance which is new for him and he is utilizing a cane for ambu lation. Patient is currently on vancomycin and consult in place with infectious disease. Cultures are in progress. Lab work from December 02 was CBC and a CMP which were unremarkable. Urinalysis was clear and negative for infection. EKG was a sinus bradycardia. 12/04: A Chin has dry dressing in place to the back area. No breakthrough bleeding or drainage. Patient states that he did okay during the night and slept somewhat. He is able to move all extremities. He states he was up walking last night. He denies any chest pain or shortness of breath. Temperature max 102.2. Patient did have repeat blood culture obtained yesterday. Repeat blood cultures ordered for this morning. Heart rate 83, blood pressure 133/74, pulse ox 90% on room air. Repeat blood work reveals W BC of 5.1, hemoglobin 11.7. Sodium 136, potassium 3.5, chloride 109, CO2 22, BUN 8 and creatinine 0.81. Blood sugar 137. All wound cultures are in progress. Patient is continued on vancomycin. REVIEW OF SYSTEMS Constitutional: Demented fever, no chills, no night sweats. No weight change. No weakness, fatigue or lethargy. No daytime sleepiness. EENT: No headache. No blurred vision or double vision, no loss of vision. No loss of Hearing, no ringing in the ears, no dizziness. No nasal drainage or congestion. No epistaxis. No sore throat. Lungs: No shortness of breath, cough, no sputum production. No wheezing. Cardiovascular: No chest pain, no lower extremity edema. No palpitations. No paroxysmal nocturnal dyspnea. No orthopnea. No lightheadedness or dizziness. No syncopal episodes. Abdominal: No abdominal pain. No nausea, vomiting. No diarrhea. No constipation. No bloody or tarry stools.. No loss of appetite. Genitourinary: No dysuria, increased frequency, urgency. No urinary retention. Musculoskeletal: No myalgias. No muscle weakness, no gait dysfunction, no frequent falls. Reports back pain. No neck pain. Integumentary: Reports wounds to lumbar area, no lesions. No rash or pruritus. No unusual bruising. No change in hair or nails. Neurologic: No aphasia. No facial droop. No change in mentation. No head injury. No headache. No paralysis. No paresthesia. Psychiatric: No depression. No anxiety. No mood swings. Endocrine: No abnormal blood sugars. No weight change. No excessive sweating or thirst. No cold intolerance. PHYSICAL EXAMINATION Gen: This is a 50-year-old male. He is resting in bed laying on his right side. He appears to be in no acute distress. HEENT: Head is atraumatic, normocephalic. Pupils equal, round. Sclerae is anicteric. NECK: Supple. No JVD. No lymphadenopathy. No thyromegaly. LUNGS: Clear to auscultation. No wheezes or rhonchi. No intercostal retractions. HEART: Regular rate and rhythm. No murmur. ABDOMEN: Soft. Bowel sounds are present. No masses. No tenderness. BACK: Large dressing in place of the lumbar area that is saturated with serosanguineous fluid. EXTREMITIES: No pedal edema. No calf tenderness. NEUROLOGICAL: Patient is awake, alert and oriented x3. Cranial nerves 2 through 12 are grossly intact. ASSESSMENT AND PLAN 1. Status post removal of lumbar sacral hardware with irrigation debridement of a lumbar sacral spine and left gluteal abscess, postop day #2. Patient is currently on vancomycin. Consult with infectious disease. Cultures are in progress. Pain management and activity per orthopedics. 2. Sepsis secondary to left gluteal abscess, present on admission. Repeat blood cultures have been obtained, wound cultures in process. ID consult appreciated. Continue vancomycin. 3. Bipolar disorder. Patient resumed on Zyprexa 20 mg at bedtime and Celexa 40 mg at bedtime. 4. Mild intermittent asthma. Stable without exacerbation. 5. GI prophylaxis. Protonix. 6. DVT prophylaxis. Heparin subcu, start tomorrow if okay with orthopedics. DISCHARGE PLAN Home with [facility] care and IV antibiotics. Impression and plan of care have been directed as dictated by the signing physician. Roselia Echevarria nurse practitioner acting as scribe for signing physician. Objective - Vital Signs Vital signs: Vital Signs Temp 102.2 F H 12/04/20 07:54 Pulse 83 12/04/20 07:54 Resp 16 12/04/20 07:54 BP 133/74 12/04/20 07:54 Pulse Ox 98 12/04/20 07:54 Intake & Output 12/03/20 12/04/20 12/04/20 18:59 06:59 18:59 Output Total 200 2500 Balance -200 -2500 Output: Urine 200 2500 Other: Voiding Method Toilet Urinal - Labs CBC & Chem 7: 12/04/20 09:17 12/04/20 09:17 Labs: Microbiology - Last 24 Hours (Table) 12/02/20 21:00 Gram Stain - Preliminary Buttock Wound Culture - Preliminary 12/02/20 21:00 Gram Stain - Preliminary Back Wound Culture - Preliminary 12/02/20 21:00 Gram Stain - Preliminary Buttock Wound Culture - Preliminary
[2020-12-04] MEDS ORDERED: VANCOMYCIN TROUGH DUE 1 EACH MISC MISCELLANE ONE (15:00)
[2020-12-04] MEDS: OLANZapine 10 MG TAB PO SCH (21:13)
[2020-12-04] MEDS: CITALOPRAM HYDROBROMIDE 20 MG TAB PO SCH (21:13)
--- NOTE | 2020-12-04 23:41 | PN ---
PROGRESS NOTE DATE OF SERVICE: 12/04/2020 REASON FOR FOLLOWUP: spine abscess. INTERVAL HISTORY: The patient did spike a fever this afternoon. The patient did have some drainage from his lumbosacral spine wound area. The patient denies having any chest pain, shortness of breath or cough. No abdominal pain or diarrhea. PHYSICAL EXAMINATION: Blood pressure 116/74 with a pulse of 80, temperature 99.6. He is 97% on room air. General description is a middle-aged male lying in bed in no distress. RESPIRATORY SYSTEM: Unlabored breathing. Clear to auscultation anteriorly. HEART: S1, S2. Regular rate and rhythm. ABDOMEN: Soft. No tenderness. LABS: Culture so far pending. Hemoglobin is 11.6, white count 5.1. BUN of 8, creatinine 0.81. DIAGNOSTIC IMPRESSION AND PLAN: Patient with lumbar sacral spine abscess, status post extensive surgery. Cultures currently pending. Patient is covered with vancomycin; to continue while waiting for the culture to finalize. Continue with supportive care. MMODL / IJN: [id number] / JABARI
[2020-12-05] MEDS: HYDROmorphone 1 MG/ML 1 ML SYRINGE IVP PRN ×2 (00:33→19:40)
[2020-12-05] MEDS: SENNOSIDES 8.6 MG TAB PO SCH (07:24)
[2020-12-05] MEDS: HYDROcodone/APAP 7.5-325MG 1 EACH TAB PO PRN ×3 (07:24→21:59)
[2020-12-05] MEDS: PANTOPRAZOLE 40 MG TABLET PO SCH (07:24)
[2020-12-05] MEDS: HEPARIN SODIUM,PORCINE 5,000 UNIT/ML 1 ML VIAL SQ SCH ×2 (07:24→21:59)
[2020-12-05] MEDS: SODIUM CHLORIDE 0.9% 1,000 ML IV SCH ×2 (07:24→16:46)
--- NOTE | 2020-12-05 08:53 | P.PN ---
Progress Note - Text Progress Note Date: 12/05/20 Postoperative day #3 Patient is seen and examined today at bedside. The patient has some pain around the surgical site as expected. Pain is being controlled with medication. There is some bloody drainage from the incision site but there is no purulence and no pus. He is not having any fevers overnight. He has been using his incentive spirometer. He says his legs and his back and been feeling better. He is ambulatory around his room. Physical Exam Afebrile with stable vital signs. No fevers overnight Abdomen is soft nontender. Chest has good excursion deep and space expiration The incision site is clean dry and intact. No erythema there is no purulence. There is no purulent drainage. There is some serosanguineous drainage on the dressing which is changed today. [place] are intact. Extremities have not had neurologic change from prior to surgery. He has 5 strength in his bilateral lower extremities Calves and thighs were soft nontender without evidence of DVT. Assessment/Plan Postoperative day #3 status post irrigation and excisional debridement with removal of deep hardware lumbar spine L4 to S1 for his paraspinal abscess and gluteal abscess Patient is progressing as expected from the surgery thus far. His cultures are still pending. He does not have further purulence or erythema around his incision site. He has some small drainage which seems to be improving without any purulent discharge. We will continue to increase the patient's mobilization with therapy. We will continue pain control with oral or IV medications. We'll continue IV antibiotics per infectious disease. He had undergone a aspiration in mid October at [facility] and we'll try to obtain those results as well. We'll continue to follow patient closely.
[2020-12-05] MEDS: VANCOMYCIN 1,500 MG in SODIUM CHLORIDE 0.9% 250 ML IVPB SCH ×2 (09:05→16:46)
[2020-12-05 09:46] LABS: HCT 34.3 % (39.0-53.0); MCH 33.3 pg (25.0-35.0); MCV 95.2 fL (80.0-100.0); Platelet Count 221 k/uL (150-450); RDW 13.1 % (11.5-15.5); WBC 5.1 k/uL (3.8-10.6)
[2020-12-05 09:58] LABS: African American GFR (CKD) >90 (>60 ml/min/1.73 sqM); Anion Gap 5 mmol/L; Blood Urea Nitrogen 8 mg/dL (9-20); C Reactive Protein 64.7 mg/L (<10.0); Carbon Dioxide 25 mmol/L (22-30); Chloride 107 mmol/L (98-107); Glucose 106 mg/dL (74-99); Non-African American GFR(CKD) >90 (>60 ml/min/1.73 sqM); Potassium 3.8 mmol/L (3.5-5.1); Sodium 137 mmol/L (137-145)
[2020-12-05 11:29] LABS: African American GFR (CKD) 116.6 (60.0-200.0); Non-African American GFR(CKD) 100.6 (60.0-200.0)
[2020-12-05 11:54] LABS: Erythrocyte Sedimentation Rate 50 mm/hr (0-15)
--- NOTE | 2020-12-05 14:10 | P.PN ---
Subjective Progress Note Date: 12/05/20 HISTORY OF PRESENT ILLNESS This is a 50-year-old male patient of Dr. Engel with past history of asthma, bipolar disorder, chronic back pain with multiple back surgeries. Patient was admitted under the care of Dr. Washburn and underwent removal of lumbar sacral hardware with irrigation debridement of a lumbar sacral spine and left gluteal abscess. Patient is postop day #1. Patient states that he continues to have pain to the area of a 7-8 out of 10 with medication. He does have numbness and tingling to the left most the time. He states this started as a bump that he felt on his left lateral lumbar region but was very tender and it enlarged to the point of the size of a grapefruit. He denies any fever or chills. He states he has pressure back pain that radiates down his legs. He states he has been losing balance which is new for him and he is utilizing a cane for ambu lation. Patient is currently on vancomycin and consult in place with infectious disease. Cultures are in progress. Lab work from December 02 was CBC and a CMP which were unremarkable. Urinalysis was clear and negative for infection. EKG was a sinus bradycardia. 12/04: A Chin has dry dressing in place to the back area. No breakthrough bleeding or drainage. Patient states that he did okay during the night and slept somewhat. He is able to move all extremities. He states he was up walking last night. He denies any chest pain or shortness of breath. Temperature max 102.2. Patient did have repeat blood culture obtained yesterday. Repeat blood cultures ordered for this morning. Heart rate 83, blood pressure 133/74, pulse ox 90% on room air. Repeat blood work reveals W BC of 5.1, hemoglobin 11.7. Sodium 136, potassium 3.5, chloride 109, CO2 22, BUN 8 and creatinine 0.81. Blood sugar 137. All wound cultures are in progress. Patient is continued on vancomycin. 12/05: Patient has had no further fever since yesterday afternoon. Heart rate is 74, blood pressure 123/80, pulse ox 90% on room air. Patient denies having any dizziness, no chest pain or shortness of breath. No abdominal pain, no diarrhea. He is using incentive spirometry. He does state he is feeling better from yesterday. He states he did have some night sweats. Repeat blood work reveals WBC 5.1, hemoglobin 12. Sed rate 50, C-reactive protein 64.7. Electrolytes normal. Creatinine 0.71. Cultures are in progress. Blood culture no growth after 24 hours. Patient is currently on vancomycin. REVIEW OF SYSTEMS Constitutional: Denies fever, no chills, reports night sweats. No weight change. No weakness, fatigue or lethargy. No daytime sleepiness. EENT: No headache. No blurred vision or double vision, no loss of vision. No loss of Hearing, no ringing in the ears, no dizziness. No nasal drainage or congestion. No epistaxis. No sore throat. Lungs: No shortness of breath, cough, no sputum production. No wheezing. Cardiovascular: No chest pain, no lower extremity edema. No palpitations. No paroxysmal nocturnal dyspnea. No orthopnea. No lightheadedness or dizziness. No syncopal episodes. Abdominal: No abdominal pain. No nausea, vomiting. No diarrhea. No c onstipation. No bloody or tarry stools.. No loss of appetite. Genitourinary: No dysuria, increased frequency, urgency. No urinary retention. Musculoskeletal: No myalgias. No muscle weakness, no gait dysfunction, no frequent falls. Reports back pain. No neck pain. Integumentary: Reports wounds to lumbar area, no lesions. No rash or pruritus. No unusual bruising. No change in hair or nails. Neurologic: No aphasia. No facial droop. No change in mentation. No head injury. No headache. No paralysis. No paresthesia. Psychiatric: No depression. No anxiety. No mood swings. Endocrine: No abnormal blood sugars. No weight change. No excessive sweating or thirst. No cold intolerance. PHYSICAL EXAMINATION Gen: This is a 50-year-old male. He is resting in bed and appears to be in no acute distress. HEENT: Head is atraumatic, normocephalic. Pupils equal, round. Sclerae is anicteric. NECK: Supple. No JVD. No lymphadenopathy. No thyromegaly. LUNGS: Clear to auscultation. No wheezes or rhonchi. No intercostal retractions. HEART: Regular rate and rhythm. No murmur. ABDOMEN: Soft. Bowel sounds are present. No masses. No tenderness. EXTREMITIES: No pedal edema. No calf tenderness. NEUROLOGICAL: Patient is awake, alert and oriented x3. Cranial nerves 2 through 12 are grossly intact. ASSESSMENT AND PLAN 1. Status post removal of lumbar sacral hardware with irrigation debridement of a lumbar sacral spine and left gluteal abscess, postop day #3. Patient is currently on vancomycin. Consult with infectious disease. Cultures are in progress. Pain management and activity per orthopedics. 2. Sepsis secondary to left gluteal abscess and possible osteomyelitis, present on admission. Blood cultures and wound cultures in process. ID consult appreciated. Continue vancomycin. Hemoglobin A1c ordered. 3. Bipolar disorder. Patient resumed on Zyprexa 20 mg at bedtime and Celexa 40 mg at bedtime. 4. Mild intermittent asthma. Stable without exacerbation. 5. GI prophylaxis. Protonix. 6. DVT prophylaxis. Heparin subcu. DISCHARGE PLAN Home with [facility] and IV antibiotics. Impression and plan of care have been directed as dictated by the signing physician. Roselia Echevarria nurse practitioner acting as scribe for signing physician. Objective - Vital Signs Vital signs: Vital Signs Temp 99.2 F 12/05/20 07:29 Pulse 74 12/05/20 07:29 Resp 15 12/05/20 07:29 BP 123/80 12/05/20 07:29 Pulse Ox 98 12/05/20 07:29 Intake & Output 12/04/20 12/05/20 12/05/20 18:59 06:59 18:59 Intake Total 900 Output Total 100 Balance 900 -100 Intake: Intake, IV Titration 900 Amount Sodium Chloride 0.9% 1, 900 000 ml @ 75 mls/hr IV . [id number] [facility] Rx#:[id number] Output: Urine 100 Other: Voiding Method Toilet Urinal - Labs CBC & Chem 7: 12/05/20 09:25 12/05/20 09:25 Labs: Abnormal Lab Results - Last 24 Hours (Table) 12/04/20 12/04/20 Range/Units 09:17 09:17 RBC 3.61 L (4.30-5.90) m/uL Hgb 11.7 L D (13.0-17.5) gm/dL Hct 35.4 L (39.0-53.0) % Sodium 136 L (137-145) mmol/L Chloride 109 H (98-107) mmol/L BUN 8 L (9-20) mg/dL Glucose 137 H (74-99) mg/dL Calcium 7.6 L (8.4-10.2) mg/dL Total Bilirubin 0.1 L (0.2-1.3) mg/dL Total Protein 5.6 L (6.3-8.2) g/dL Albumin 2.8 L (3.5-5.0) g/dL Microbiology - Last 24 Hours (Table) 12/02/20 21:00 Gram Stain - Preliminary Buttock Wound Culture - Preliminary 12/02/20 21:00 Gram Stain - Final Buttock Wound Culture - Final 12/02/20 21:00 Gram Stain - Final Back Wound Culture - Final 12/03/20 12:39 Blood Culture - Preliminary Blood No Growth after 24 hours
--- NOTE | 2020-12-05 19:34 | PN ---
PROGRESS NOTE DATE OF SERVICE: 12/05/2020 REASON FOR FOLLOWUP: Lumbosacral spine and gluteal abscess. INTERVAL HISTORY: The patient is currently afebrile. The patient is breathing comfortably. Pain to the lumbosacral spine is currently controlled. Denies having any chest pain, shortness of breath or cough. No abdominal pain or diarrhea. PHYSICAL EXAMINATION: Blood pressure 136/87, pulse of 65, temperature 98.4. He is 98% on room air. General description is a middle-aged male lying in bed in no distress. RESPIRATORY SYSTEM: Unlabored breathing. Clear to auscultation anteriorly. HEART: S1, S2. Regular rate and rhythm. ABDOMEN: Soft. No tenderness. Lumbosacral spine is currently dressed. Minimal drainage on the dressing. LABS: Hemoglobin is 12, white count of 5.1. BUN of 8, creatinine 0.71. Culture so far negative. DIAGNOSTIC IMPRESSION AND PLAN: Patient with lumbosacral abscess with infected hardware that has been discontinued along with a gluteal abscess, status post drainage. The patient is currently covered with vancomycin while waiting for the culture to finalize to determine discharge antibiotics. Continue with supportive care. MMODL / IJN: [id number] / MTDD
[2020-12-05] MEDS: CITALOPRAM HYDROBROMIDE 20 MG TAB PO SCH (21:58)
[2020-12-05] MEDS: OLANZapine 10 MG TAB PO SCH (22:00)
[2020-12-06] MEDS: VANCOMYCIN 1,500 MG in SODIUM CHLORIDE 0.9% 250 ML IVPB SCH ×2 (00:06→07:43)
[2020-12-06] MEDS: HYDROmorphone 1 MG/ML 1 ML SYRINGE IVP PRN ×4 (06:03→22:32)
[2020-12-06 06:26] LABS: African American GFR (CKD) >90 (>60 ml/min/1.73 sqM); Non-African American GFR(CKD) >90 (>60 ml/min/1.73 sqM)
[2020-12-06] MEDS: HYDROcodone/APAP 7.5-325MG 1 EACH TAB PO PRN ×3 (07:43→20:06)
[2020-12-06] MEDS: HEPARIN SODIUM,PORCINE 5,000 UNIT/ML 1 ML VIAL SQ SCH ×2 (07:43→20:06)
[2020-12-06] MEDS: SENNOSIDES 8.6 MG TAB PO SCH (07:43)
[2020-12-06] MEDS: PANTOPRAZOLE 40 MG TABLET PO SCH (07:43)
--- NOTE | 2020-12-06 08:25 | P.PN ---
Progress Note - Text Progress Note Date: 12/06/20 Orthopedic Spine: History of present illness: Patient is a pleasant 50-year-old male who is seen and examined at the bedside following removal of lumbosacral hardware with irrigation and debridement at the lumbosacral spine and left gluteus performed on 12/02/2020. Patient states he continues to do well postsurgically. He continues to be able to ambulate to the restroom and throughout his room without difficulty. He changes positions well. He has some pain at the surgical site but states it is well-controlled. He's not currently complaining of a lower extremity weakness or radiculopathy. He is able to move his legs independently. He continues to have some saturation of his dressing which has been reinforced with the drainage has slowed over the past couple days. Currently does not complain of nausea, vomiting, fever, or chills. He denies any fever or chills. Previously taken blood cultures have been negative so far are still preliminary. Wound cultures continued to be preliminary and are positive for anaerobic gram-positive cocci. Patient states pain has been adequately controlled. Patient is eating and voiding freely without difficulty. He has no complaints at the bedside. He continues to be seen by medicine and infectious disease. He is eager for discharge home once cleared. Patient is currently on vancomycin IV. We did discuss he'll need a PICC line prior to discharge and set up planning for antibiotic medication the outpatient setting. Physical Exam Lumbar Fusion: Status post surgical day number 4 Patient is awake, alert, and oriented 3 Vital signs stable Good chest excursion with deep inspiration and expiration Dorsiflexion, plantarflexion, and extensor hallucis longus positive sustained bilaterally No signs or symptoms of DVT; no calf pain; calves are soft nontender; pneumatic cuffs currently intact bilateral lower extremities Dressing has been changed; no erythema, purulence, or signs of infection [place] remain intact at the surgical site Patient is able to perform adequate range of motion bilateral lower extremities without difficulty Neurovascularly intact bilaterally lower extremities Assessment: Status post removal of lumbosacral hardware Status post irrigation and debridement of lumbosacral spine infection and left gluteal infection Preliminary results of wound infection of anaerobic gram-positive cocci History of L4-5 and L5-S1 lumbar fusion in 2007 Low back pain Hypertension Impression Plan: 1. Ambulate as tolerated; work with Physical Therapy to increase mobilization 2. Continue pain control with IV and oral medications 3. Dressing has been changed and is currently clean, dry, and intact; may continue with dressing changes as needed; will also plan to obtain cooling mach ine 4. Patient will continue to be seen by medicine for medical management for patient's other medical diagnoses 5. Patient will continue to be seen by infectious disease; patient currently on vancomycin; IV antibiotic medication may be changed at the discretion of infectious disease; cultures are currently preliminarily with anaerobic gram- positive cocci; blood cultures pending 6. We will continue to follow the patient closely; we discussed patient will most likely remain the hospital over the next several days as we will wait for culture results to be finalized. After finalization, patient will need a PICC line placed and appropriate for antibiotic treatment in the outpatient setting. This will be managed by infectious disease. 7. Patient can follow-up with Guy Saucedo PA-C or Dr. Sathish Washburn at [facility] in 1-2 weeks following discharge
[2020-12-06] MEDS: SODIUM CHLORIDE 0.9% 1,000 ML IV SCH ×2 (09:57→22:38)
[2020-12-06] MEDS: metroNIDAZOLE 500 MG TAB PO SCH ×3 (12:15→20:07)
[2020-12-06] MEDS ORDERED: LIDOCAINE 1% INJ 10MG/ML (20 ML MDV) ONE (14:23)
[2020-12-06] MEDS ORDERED: LIDOCAINE 1% INJ 10MG/ML (20 ML MDV) SQ ONE (14:50)
--- NOTE | 2020-12-06 16:03 | P.PN ---
Subjective Progress Note Date: 12/06/20 HISTORY OF PRESENT ILLNESS This is a 50-year-old male patient of Dr. Engel with past history of asthma, bipolar disorder, chronic back pain with multiple back surgeries. Patient was admitted under the care of Dr. Washburn and underwent removal of lumbar sacral hardware with irrigation debridement of a lumbar sacral spine and left gluteal abscess. Patient is postop day #1. Patient states that he continues to have pain to the area of a 7-8 out of 10 with medication. He does have numbness and tingling to the left most the time. He states this started as a bump that he felt on his left lateral lumbar region but was very tender and it enlarged to the point of the size of a grapefruit. He denies any fever or chills. He states he has pressure back pain that radiates down his legs. He states he has been losing balance which is new for him and he is utilizing a cane for ambu lation. Patient is currently on vancomycin and consult in place with infectious disease. Cultures are in progress. Lab work from December 02 was CBC and a CMP which were unremarkable. Urinalysis was clear and negative for infection. EKG was a sinus bradycardia. 12/04: A Chin has dry dressing in place to the back area. No breakthrough bleeding or drainage. Patient states that he did okay during the night and slept somewhat. He is able to move all extremities. He states he was up walking last night. He denies any chest pain or shortness of breath. Temperature max 102.2. Patient did have repeat blood culture obtained yesterday. Repeat blood cultures ordered for this morning. Heart rate 83, blood pressure 133/74, pulse ox 90% on room air. Repeat blood work reveals W BC of 5.1, hemoglobin 11.7. Sodium 136, potassium 3.5, chloride 109, CO2 22, BUN 8 and creatinine 0.81. Blood sugar 137. All wound cultures are in progress. Patient is continued on vancomycin. 12/05: Patient has had no further fever since yesterday afternoon. Heart rate is 74, blood pressure 123/80, pulse ox 90% on room air. Patient denies having any dizziness, no chest pain or shortness of breath. No abdominal pain, no diarrhea. He is using incentive spirometry. He does state he is feeling better from yesterday. He states he did have some night sweats. Repeat blood work reveals WBC 5.1, hemoglobin 12. Sed rate 50, C-reactive protein 64.7. Electrolytes normal. Creatinine 0.71. Cultures are in progress. Blood culture no growth after 24 hours. Patient is currently on vancomycin. 12/06: She denies having any fever or chills. No headache. No nausea. No numbness or tingling. Patient has been afebrile since December 04. Heart rate 60s, blood pressure 123/71, pulse ox 97% on room air. Creatinine 0.72. All blood cultures are showing no growth at 24, 48 and 72 hours. Wound culture is anaerobic gram-positive cocci. PICC line has been inserted. Patient is continued on vancomycin and followed by infectious disease. A1c is 5.7. No history of diabetes. REVIEW OF SYSTEMS Constitutional: Denies fever, no chills, reports night sweats. No weight change. No weakness, fatigue or lethargy. No daytime sleepiness. EENT: No headache. No blurred vision or double vision, no loss of vision. No loss of Hearing, no ringing in the ears, no dizziness. No nasal drainage or congestion. No epistaxis. No sore throat. Lungs: No shortness of breath, cough, no sputum production. No wheezing. Cardiovascular: No chest pain, no lower extremity edema. No palpitations. No paroxysmal nocturnal dyspnea. No orthopnea. No lightheadedness or dizziness. No syncopal episodes. Abdominal: No abdominal pain. No nausea, vomiting. No diarrhea. No constipation. No bloody or tarry stools.. No loss of appetite. Genitourinary: No dysuria, increased frequency, urgency. No urinary retention. Musculoskeletal: No myalgias. No muscle weakness, no gait dysfunction, no f requent falls. Reports back discomfort. No neck pain. Denies numbness or tingling. Integumentary: Reports wounds to lumbar area, no lesions. No rash or pruritus. No unusual bruising. No change in hair or nails. Neurologic: No aphasia. No facial droop. No change in mentation. No head injury. No headache. No paralysis. No paresthesia. Psychiatric: No depression. No anxiety. No mood swings. Endocrine: No abnormal blood sugars. No weight change. No excessive sweating or thirst. No cold intolerance. PHYSICAL EXAMINATION Gen: This is a 50-year-old male. He is resting in bed and appears to be in no acute distress. HEENT: Head is atraumatic, normocephalic. Pupils equal, round. Sclerae is anicteric. NECK: Supple. No JVD. No lymphadenopathy. No thyromegaly. LUNGS: Clear to auscultation. No wheezes or rhonchi. No intercostal retractions. HEART: Regular rate and rhythm. No murmur. ABDOMEN: Soft. Bowel sounds are present. No masses. No tenderness. EXTREMITIES: No pedal edema. No calf tenderness. Dorsalis pedis palpable bilaterally. NEUROLOGICAL: Patient is awake, alert and oriented x3. Cranial nerves 2 through 12 are grossly intact. ASSESSMENT AND PLAN 1. Status post removal of lumbar sacral hardware with irrigation debridement of a lumbar sacral spine and left gluteal abscess, postop day #4. Patient is cu rrently on vancomycin. Consult with infectious disease. Cultures are in progress. Pain management and activity per orthopedics. 2. Sepsis secondary to left gluteal abscess and possible osteomyelitis, present on admission. Blood cultures and wound cultures in process. ID consult appreciated. Continue vancomycin. Hemoglobin A1c ordered. 3. Bipolar disorder. Patient resumed on Zyprexa 20 mg at bedtime and Celexa 40 mg at bedtime. 4. Mild intermittent asthma. Stable without exacerbation. 5. GI prophylaxis. Protonix. 6. DVT prophylaxis. Heparin subcu. DISCHARGE PLAN Home with [facility] and IV antibiotics most likely on Wednesday. Impression and plan of care have been directed as dictated by the signing physician. Roselia Echevarria nurse practitioner acting as scribe for signing physician. Objective - Vital Signs Vital signs: Vital Signs Temp 97.7 F 12/06/20 14:00 Pulse 67 12/06/20 14:00 Resp 18 12/06/20 14:00 BP 116/75 12/06/20 14:00 Pulse Ox 96 12/06/20 07:42 Intake & Output 12/05/20 12/06/20 12/06/20 18:59 06:59 18:59 Intake Total 1690 Balance 1690 Intake: Intake, IV Titration 1150 Amount Sodium Chloride 0.9% 1, 900 000 ml @ 75 mls/hr IV . [id number] [facility] Rx#:[id number] Vancomycin 1,500 mg In 250 Sodium Chloride 0.9% 250 ml @ 125 mls/hr IVPB Q8H [facility] Rx#:[id number] Oral 540 Other: Voiding Method Toilet Toilet Urinal # Voids 2 - Labs CBC & Chem 7: 12/05/20 09:25 12/06/20 05:34 Labs: Microbiology - Last 24 Hours (Table) 12/03/20 12:39 Blood Culture - Preliminary Blood No Growth after 72 hours 12/04/20 09:17 Blood Culture - Preliminary Blood No Growth after 48 hours 12/05/20 00:25 Blood Culture - Preliminary Blood No Growth after 24 hours 12/02/20 21:00 Anaerobic Culture - Preliminary Buttock Anaerobic Gram Positive Cocci 12/02/20 21:00 Anaerobic Culture - Preliminary Back Anaerobic Gram Positive Cocci 12/02/20 21:00 Anaerobic Culture - Preliminary Buttock Anaerobic Gram Positive Cocci 12/02/20 21:00 Gram Stain - Preliminary Buttock Wound Culture - Preliminary
--- NOTE | 2020-12-06 17:09 | PN ---
PROGRESS NOTE DATE OF SERVICE: 12/06/2020 REASON FOR FOLLOWUP: Lumbosacral and left gluteal abscess. INTERVAL HISTORY: The patient is currently afebrile. The patient is feeling better, breathing comfortably. Overall pain and discomfort to the lower back and gluteal area has improved. The patient denies having any chest pain, shortness of breath or cough. He wants to go home. PHYSICAL EXAMINATION: Blood pressure 116/75, pulse of 67, temperature 97.7. He is 96% on room air. General description is a middle-aged male up in the room in no distress. RESPIRATORY SYSTEM: Unlabored breathing. Clear to auscultation anteriorly. HEART: S1, S2. Regular rate and rhythm. ABDOMEN: Soft. No tenderness. LABS: Creatinine 0.72. Local culture showing anaerobic Gram-positive cocci. DIAGNOSTIC IMPRESSION AND PLAN: Patient with lumbosacral paraspinal abscess and left gluteal abscess, status post drainage. Culture has been predominantly anaerobes. Flagyl has been added. Will switch him over to Rocephin 2 grams daily, as no resistant gram-negative has been grown. Once the patient gets a PICC line to continue the IV antibiotics for 6 weeks along with oral Flagyl, weekly monitoring of CBC and BMP and sedimentation rate, he can follow up in the office in one week. MMODL / IJN: [id number] / JABARI
[2020-12-06] MEDS: CITALOPRAM HYDROBROMIDE 20 MG TAB PO SCH (20:06)
[2020-12-06] MEDS: OLANZapine 10 MG TAB PO SCH (20:07)
--- NOTE | 2020-12-06 21:17 | IR ---
EXAMINATION TYPE: IR cvc insert >=5 years DATE OF EXAM: 12/06/2020 COMPARISON: NONE CLINICAL HISTORY: Infection Needs long-term intravenous access for antibiotics. PROCEDURE: Hand hygiene obtained with soap and water and alcohol-based hand rub. After informed consent, the skin overlying the left basilic vein was localized with ultrasound and no nico to be compressible and patent. An ultrasound image was obtained and submitted on the patient's c collado. The overlying skin was prepped and draped and Lidocaine was used for local anesthesia. A skin bonifacio was made with a scalpel. Access was gained to the vein under ultrasound guidance with a 21 gau ge needle and a 0.018 inch wire was advanced. Access site was dilated with Peel-Away sheath and cath eter tailored to the appropriate length and advanced such that the distal tip is at the cavoatrial ju nction. Spot image was obtained verifying placement. Catheter was fixed to the skin and a sterile d ressing was placed following hemostasis. Catheter was aspirated and flushed with saline. Patient wa s discharged in stable condition without complication.Maximal barrier technique is utilized. Ultraso und image is documented on the chart. Ultrasound used with sterile technique. Fluoro time and fluoroscopic images submitted to document procedure: 0.1 minutes fluoroscopy time, 95 intraoperative images document the procedure IMPRESSION: STATUS POST ULTRASOUND AND FLUOROSCOPIC GUIDED PICC LINE PLACEMENT, READY FOR USE. THIS PROCEDURE WAS PERFORMED BY THE UNDERSIGNED.
[2020-12-07] MEDS: HYDROcodone/APAP 7.5-325MG 1 EACH TAB PO PRN ×2 (02:14→10:50)
[2020-12-07 03:29] VITALS: TEMP 97.7
[2020-12-07] MEDS: HYDROmorphone 1 MG/ML 1 ML SYRINGE IVP PRN (06:02)
[2020-12-07 06:35] LABS: African American GFR (CKD) >90 (>60 ml/min/1.73 sqM); Non-African American GFR(CKD) >90 (>60 ml/min/1.73 sqM)
[2020-12-07] MEDS: HEPARIN SODIUM,PORCINE 5,000 UNIT/ML 1 ML VIAL SQ SCH (07:13)
[2020-12-07] MEDS: metroNIDAZOLE 500 MG TAB PO SCH (07:14)
[2020-12-07] MEDS: SENNOSIDES 8.6 MG TAB PO SCH (07:14)
[2020-12-07] MEDS: PANTOPRAZOLE 40 MG TABLET PO SCH (07:14)
[2020-12-07 08:03] VITALS: BP 128/83; PULSE 64; RESP 16
[2020-12-07] MEDS: SODIUM CHLORIDE 0.9% 1,000 ML IV SCH (10:20)
[2020-12-07 10:59] LABS: Basophils % (A) 0 %; Eosinophils # (A) 0.4 k/uL (0-0.7); Eosinophils % (A) 9 %; HCT 33.3 % (39.0-53.0); HGB 11.4 gm/dL (13.0-17.5); Lymphocytes # (A) 2.1 k/uL (1.0-4.8); Lymphocytes % (A) 48 %; MCH 33.2 pg (25.0-35.0); MCHC 34.2 g/dL (31.0-37.0); MCV 97.2 fL (80.0-100.0); Monocytes # (A) 0.4 k/uL (0-1.0); Monocytes % (A) 8 %; Neutrophils # (A) 1.4 k/uL (1.3-7.7); Neutrophils % (A) 32 %; Platelet Count 250 k/uL (150-450); RBC 3.43 m/uL (4.30-5.90); RDW 13.1 % (11.5-15.5); WBC 4.3 k/uL (3.8-10.6)
[2020-12-07 11:07] LABS: ALT 23 U/L (4-49); AST 25 U/L (17-59); Albumin 2.7 g/dL (3.5-5.0); Alkaline Phosphatase 51 U/L (38-126); Anion Gap 4 mmol/L; Blood Urea Nitrogen 7 mg/dL (9-20); Calcium 7.9 mg/dL (8.4-10.2); Carbon Dioxide 24 mmol/L (22-30); Chloride 110 mmol/L (98-107); Globulin 2.8 g/dL; Glucose 90 mg/dL (74-99); Potassium 3.9 mmol/L (3.5-5.1); Sodium 138 mmol/L (137-145); Total Bilirubin 0.1 mg/dL (0.2-1.3); Total Protein 5.5 g/dL (6.3-8.2)
--- NOTE | 2020-12-07 12:05 | P.DS ---
Providers Date of admission: 12/04/20 08:01 Expected date of discharge: 12/07/20 Attending physician: Graham Washburn Consults: 12/02/20 23:16 Consult Physician Routine Consulting Provider: Treasure Benavides Consult Reason/Comments: infected lumbar hardware Do you want consulting provider notified?: Yes, Notify in am 12/02/20 23:17 Consult Physician Routine Consulting Provider: Eric Dee Consult Reason/Comments: covering for Dr Engel- medical management Do you want consulting provider notified?: Yes, Notify in am Primary care physician: Shin Engel - Discharge Diagnosis(es) (1) Abscess, gluteal, left Current Visit: Yes Status: Acute (2) Wound infection complicating hardware Current Visit: Yes Status: Acute (3) Back pain Current Visit: Yes Status: Acute (4) Status post hardware removal Current Visit: Yes Status: Acute (5) Bipolar disorder Current Visit: Yes Status: Acute (6) Current every day smoker Current Visit: Yes Status: Acute Hospital Course: This is a pleasant 50-year-old male who presented with paraspinal abscess and left gluteal abscess with infected hardware at L4-5 and L5-S1. He has a history of previous lumbar spinal fusion L4-S1 performed in 2007. He was admitted for irrigation and excisional debridement of gluteal abscess and paraspinal abscess with removal of deep hardware. The patient tolerated the procedure well and did well postoperatively. His back pain has been well controlled postoperatively. He is able to ambulate in his room in the hallways without significant difficulty. He denies any lower extremity weakness or radiculopathy bilaterally. He's been seen by multiple medical providers during his admission including medicine and infectious disease. Patient had remained in hospital waiting for finalization of his culture results. They have been finalized and are positive for anaerobic gram-positive cocci. PICC line has been placed yesterday. Discharge was pending approval for prior authorization from his insurance for his antibiotic medications. Case management states this has been approved. Patient has been seen by medicine this morning who has cleared the patient for discharge. Patient is eager for discharge. Condition on day of discharge stable. Patient will be discharged home. Patient was cleared preoperatively for surgery. Patient currently denies any nausea, vomiting, fever, or chills. Patient is eating and voiding freely without difficulty. Patient has continued to have some drainage from his surgical site which has improved as compared to yesterday. We did discuss he can continue with daily dressing changes as needed. He has farida intact at the wound site. We discussed the farida should remain intact. We will plan to have him follow-up next 12/13/2020 in the office for further evaluation. Patient should avoid excessive bending, lifting, and twisting; no lifting greater than 10 pounds. MAPS has been reviewed today, 12/07/2020, with an Overall Overdose Risk Score of 140. An "Opiod Start Talking" Form has been signed and placed in the patient's chart. A prescription has been written for [place] 7.5 mg/325 mg, Take 1 tab every 6 hours as needed for pain, dispensed #28. Infectious disease has prescribed Flagyl and Rocephin in the outpatient setting. Take antibiotic medication as prescribed by infectious disease. Patient's other medical diagnoses include bipolar disorder and current every day smoker. Physical Exam on day of discharge: Patient is awake, alert, and oriented 3 Vital signs stable Good chest excursion with deep inspiration and expiration Abdomen soft nontender No signs or symptoms of DVT; no calf pain Extensor hallucis longus, plantarflexion, and dorsiflexion positive sustained bilateral lower extremities Dressing has been removed and reapplied Some small drainage from the middle of the wound/surgical site Farida remain intact No erythema around the wound/surgical site No significant pain with palpation around the wound/surgical site Procedures: Irrigation and excisional debridement of gluteal abscess and paraspinal abscess with removal of deep hardware. Patient Condition at Discharge: Stable Plan - Discharge Summary Discharge Rx Participant: Yes New Discharge Prescriptions: New metroNIDAZOLE [Flagyl] 500 mg PO TID #90 tab cefTRIAXone [Rocephin] 2,000 mg IVP Q24HR #42 vial HYDROcodone/APAP 7.5-325MG [[place] 7.5-325] 1 each PO Q6HR PRN #28 tab PRN Reason: Pain No Action OLANZapine [ZyPREXA] 20 mg PO DAILY Hydrocodone/Acetaminophen [[place] 7.5-325] 1 tab PO TID Citalopram Hydrobromide [CeleXA] 40 mg PO DAILY Ibuprofen [Motrin] 600 mg PO Q8HR PRN #30 tab PRN Reason: Pain Discharge Medication List Citalopram Hydrobromide [CeleXA] 40 mg PO DAILY 06/10/17 [History] Hydrocodone/Acetaminophen [[place] 7.5-325] 1 tab PO TID 06/10/17 [History] OLANZapine [ZyPREXA] 20 mg PO DAILY 06/10/17 [History] Ibuprofen [Motrin] 600 mg PO Q8HR PRN #30 tab 09/16/17 [Rx] cefTRIAXone [Rocephin] 2,000 mg IVP Q24HR #42 vial 12/06/20 [Rx] metroNIDAZOLE [Flagyl] 500 mg PO TID #90 tab 12/06/20 [Rx] HYDROcodone/APAP 7.5-325MG [[place] 7.5-325] 1 each PO Q6HR PRN #28 tab 12/07/20 [Rx] Follow up Appointment(s)/Referral(s): [facility], [NON-STAFF] - [facility], [REFERRING] - Shin Engel MD [Primary Care Provider] - 1 Week Treasure Benavides MD [STAFF PHYSICIAN] - 1 Week Guy Saucedo PAC [PHYSICIAN PALLIATIVE CARE NURSE] - 12/13/20 11:00 am (Patient needs to call to schedule follow-up appointment with Dr. Sathish Washburn at [facility] on 12/13/2020.) Ambulatory/Diagnostic Orders: Basic Metabolic Panel [LAB.AMB] Location: None Selected C Reactive Protein [LAB.AMB] Location: None Selected Complete Blood Count w/diff [LAB.AMB] Location: None Selected Erythrocyte Sedimentation Rate [LAB.AMB] Location: None Selected Activity/Diet/Wound Care/Special Instructions: [facility] will need to be notified at [phone] if patient is discharged over the weekend so that IV antibiotics can be delivered. Also, [facility] will need to be called at [phone]. 1. Patient may shower with dressing intact. 2. Patient may continue with daily dressing changes as needed. 3. Patient should refrain from driving until at least after their first follow- up appointment in the office. 4. Patient should avoid excessive bending, twisting, lifting; avoid overhead lifting; no lifting greater than 10 pounds 5. Take medications as prescribed 6. Do not soak in tub Discharge Disposition: HOME SELF-CARE
--- NOTE | 2020-12-07 12:46 | P.PN ---
Subjective Progress Note Date: 12/07/20 HISTORY OF PRESENT ILLNESS This is a 50-year-old male patient of Dr. Engel with past history of asthma, bipolar disorder, chronic back pain with multiple back surgeries. Patient was admitted under the care of Dr. Washburn and underwent removal of lumbar sacral hardware with irrigation debridement of a lumbar sacral spine and left gluteal abscess. Patient is postop day #1. Patient states that he continues to have pain to the area of a 7-8 out of 10 with medication. He does have numbness and tingling to the left most the time. He states this started as a bump that he felt on his left lateral lumbar region but was very tender and it enlarged to the point of the size of a grapefruit. He denies any fever or chills. He states he has pressure back pain that radiates down his legs. He states he has been losing balance which is new for him and he is utilizing a cane for ambu lation. Patient is currently on vancomycin and consult in place with infectious disease. Cultures are in progress. Lab work from December 02 was CBC and a CMP which were unremarkable. Urinalysis was clear and negative for infection. EKG was a sinus bradycardia. 12/04: A Chin has dry dressing in place to the back area. No breakthrough bleeding or drainage. Patient states that he did okay during the night and slept somewhat. He is able to move all extremities. He states he was up walking last night. He denies any chest pain or shortness of breath. Temperature max 102.2. Patient did have repeat blood culture obtained yesterday. Repeat blood cultures ordered for this morning. Heart rate 83, blood pressure 133/74, pulse ox 90% on room air. Repeat blood work reveals W BC of 5.1, hemoglobin 11.7. Sodium 136, potassium 3.5, chloride 109, CO2 22, BUN 8 and creatinine 0.81. Blood sugar 137. All wound cultures are in progress. Patient is continued on vancomycin. 12/05: Patient has had no further fever since yesterday afternoon. Heart rate is 74, blood pressure 123/80, pulse ox 90% on room air. Patient denies having any dizziness, no chest pain or shortness of breath. No abdominal pain, no diarrhea. He is using incentive spirometry. He does state he is feeling better from yesterday. He states he did have some night sweats. Repeat blood work reveals WBC 5.1, hemoglobin 12. Sed rate 50, C-reactive protein 64.7. Electrolytes normal. Creatinine 0.71. Cultures are in progress. Blood culture no growth after 24 hours. Patient is currently on vancomycin. 12/06: She denies having any fever or chills. No headache. No nausea. No numbness or tingling. Patient has been afebrile since December 04. Heart rate 60s, blood pressure 123/71, pulse ox 97% on room air. Creatinine 0.72. All blood cultures are showing no growth at 24, 48 and 72 hours. Wound culture is anaerobic gram-positive cocci. PICC line has been inserted. Patient is continued on vancomycin and followed by infectious disease. A1c is 5.7. No history of diabetes. 12/07 patient examined bedside. He denies any shortness of breath, chest pain, fever or chills. Patient denies any headache dizziness or nausea or vomiting. He is tolerating antibiotics without any side effects. Is able to walk around the room without any difficulty. Patient's wound cultures still showing anaerobic bacteria were not finalized years. Evaluated by infectious disease who is recommending 6 weeks of Rocephin 2 g along with Flagyl with follow-up as outpatient. REVIEW OF SYSTEMS Constitutional: Denies fever, no chills, reports night sweats. No weight change. No weakness, fatigue or lethargy. No daytime sleepiness. EENT: No headache. No blurred vision or double vision, no loss of vision. No loss of Hearing, no ringing in the ears, no dizziness. No nasal drainage or congestion. No epistaxis. No sore throat. Lungs: No shortness of breath, cough, no sputum production. No wheezing. Cardiovascular: No chest pain, no lower extremity edema. No palpitations. No paroxysmal nocturnal dyspnea. No orthopnea. No lightheadedness or dizziness. No syncopal episodes. Abdominal: No abdominal pain. No nausea, vomiting. No diarrhea. No constipation. No bloody or tarry stools.. No loss of appetite. Genitourinary: No dysuria, increased frequency, urgency. No urinary retention. Musculoskeletal: No myalgias. No muscle weakness, no gait dysfunction, no frequent falls. Reports back discomfort. No neck pain. Denies numbness or tingling. Integumentary: Reports wounds to lumbar area, no lesions. No rash or pruritus. No unusual bruising. No change in hair or nails. Neurologic: No aphasia. No facial droop. No change in mentation. No head injury. No headache. No paralysis. No paresthesia. Psychiatric: No depression. No anxiety. No mood swings. Endocrine: No abnormal blood sugars. No weight change. No excessive sweating or thirst. No cold intolerance. Objective - Vital Signs Vital signs: Vital Signs Temp 97.7 F 12/07/20 08:00 Pulse 64 12/07/20 08:00 Resp 16 12/07/20 08:00 BP 128/83 12/07/20 08:00 Pulse Ox 99 12/07/20 08:00 Intake & Output 12/06/20 12/07/20 12/07/20 18:59 06:59 18:59 Other: # Voids 2 - Exam PHYSICAL EXAMINATION Gen: This is a 50-year-old male. He is resting in bed and appears to be in no acute distress. HEENT: Head is atraumatic, normocephalic. Pupils equal, round. Sclerae is anicteric. NECK: Supple. No JVD. No lymphadenopathy. No thyromegaly. LUNGS: Clear to auscultation. No wheezes or rhonchi. No intercostal retractions. HEART: Regular rate and rhythm. No murmur. ABDOMEN: Soft. Bowel sounds are present. No masses. No tenderness. Incision site with no drainage does have superficial skin irritation from the tape EXTREMITIES: No pedal edema. No calf tenderness. Dorsalis pedis palpable bilaterally. NEUROLOGICAL: Patient is awake, alert and oriented x3. Gross motor and sensory deficit absent - Labs CBC & Chem 7: 12/07/20 05:35 12/07/20 05:35 Labs: Abnormal Lab Results - Last 24 Hours (Table) 12/07/20 12/07/20 Range/Units 05:35 05:35 RBC 3.43 L (4.30-5.90) m/uL Hgb 11.4 L (13.0-17.5) gm/dL Hct 33.3 L (39.0-53.0) % Chloride 110 H (98-107) mmol/L BUN 7 L (9-20) mg/dL Calcium 7.9 L (8.4-10.2) mg/dL Total Bilirubin 0.1 L (0.2-1.3) mg/dL Total Protein 5.5 L (6.3-8.2) g/dL Albumin 2.7 L (3.5-5.0) g/dL Microbiology - Last 24 Hours (Table) 12/04/20 09:17 Blood Culture - Preliminary Blood No Growth after 72 hours 12/05/20 00:25 Blood Culture - Preliminary Blood No Growth after 48 hours 12/02/20 21:00 Anaerobic Culture - Final Buttock Anaerobic Gram Positive Cocci 12/02/20 21:00 Anaerobic Culture - Final Back Anaerobic Gram Positive Cocci 12/02/20 21:00 Anaerobic Culture - Final Buttock Anaerobic Gram Positive Cocci 12/02/20 21:00 Gram Stain - Final Buttock Wound Culture - Final 12/03/20 12:39 Blood Culture - Preliminary Blood No Growth after 72 hours Assessment and Plan Plan: ASSESSMENT AND PLAN 1. Status post removal of lumbar sacral hardware with irrigation debridement of a lumbar sacral spine and left gluteal abscess, postop day #5. Patient switched to Rocephin and Flagyl infectious disease recommendations appreciated. PICC li ne in place would like we are require 6 weeks of IV antibiotics and wound cultures positive for anaerobic bacteria 1 blood cultures negative so far 2. Sepsis secondary to left gluteal abscess and possible osteomyelitis, present on admission. Blood cultures and wound cultures in process. ID consult appreciated. Rocephin 2 g daily 3. Bipolar disorder. Continue Zyprexa 20 mg at bedtime and Celexa 40 mg at bedtime. 4. Mild intermittent asthma. Stable without exacerbation. 5. GI prophylaxis. Protonix. 6. DVT prophylaxis. Heparin subcu.
--- NOTE | 2020-12-07 15:42 | PN ---
PROGRESS NOTE DATE OF SERVICE: 12/07/2020 REASON FOR FOLLOWUP: Lumbosacral spine and left gluteal abscess. INTERVAL HISTORY: The patient is currently afebrile. The patient is breathing comfortably. The patient denies having any chest pain or any cough. No abdominal pain or any worsening pain to the lower back area. EXAMINATION: Blood pressure 122/83, pulse of 64, temperature 97.7. He is 99% on room air. General description is a middle-aged male up in the bed in no distress. Respiratory system: Unlabored breathing, clear to auscultation anteriorly. Heart S1, S2. Regular rate and rhythm. Abdomen soft, no tenderness. Lumbosacral spine is currently dressed, no drainage on the dressing. LABS: Hemoglobin 11.4, white count 4.3, sedimentation rate was 50, CRP 64.7. DIAGNOSTIC IMPRESSION AND PLAN: Patient with a lumbosacral spine abscess with removal of the hardware, drainage of the abscess and drainage of the left gluteal abscess. Culture with anaerobic gram-positive cocci. The patient is currently covered with Rocephin and Flagyl. Plan is for a total of six weeks of antibiotic and close outpatient followup. Questions and concerns were answered. MMODL / IJN: [id number] /
== END 2020-12-07 14:24 | disposition home health service (06) | DRG 518 ==
LOC: OR 15:41 → 4SSUR 21:35 → OR 12-04 08:01
PROVIDERS: ADMIT Orthopaedic Surgery Orthopaedic Surgery of the Spine; ATTEND Orthopaedic Surgery Orthopaedic Surgery of the Spine
PROC: 0SP004Z Removal of Internal Fixation Device from Lumbar Vertebral Joint, Open Approach (ICD-10-PCS; 2020-12-02)
PROC: 0KBP0ZZ Excision of Left Hip Muscle, Open Approach (ICD-10-PCS; 2020-12-02)
PROC: 01NB0ZZ Release Lumbar Nerve, Open Approach (ICD-10-PCS; 2020-12-02)
PROC: 0SP304Z Removal of Internal Fixation Device from Lumbosacral Joint, Open Approach (ICD-10-PCS; 2020-12-02)
PROC: 0SB40ZZ Excision of Lumbosacral Disc, Open Approach (ICD-10-PCS; 2020-12-02)
PROC: 0SB20ZZ Excision of Lumbar Vertebral Disc, Open Approach (ICD-10-PCS; principal; 2020-12-02 12:15)
PROC: 02HV33Z Insertion of Infusion Device into Superior Vena Cava, Percutaneous Approach (ICD-10-PCS; 2020-12-06)
DX: T84.63XA Infection and inflammatory reaction due to internal fixation device of spine, initial encounter (principal); A41.9 Sepsis, unspecified organism; M60.08 Infective myositis, other site; L02.31 Cutaneous abscess of buttock; E11.9 Type 2 diabetes mellitus without complications; F31.9 Bipolar disorder, unspecified; I10 Essential (primary) hypertension; H40.9 Unspecified glaucoma; J45.20 Mild intermittent asthma, uncomplicated; G89.29 Other chronic pain; R00.1 Bradycardia, unspecified; F17.210 Nicotine dependence, cigarettes, uncomplicated; F41.9 Anxiety disorder, unspecified; F90.9 Attention-deficit hyperactivity disorder, unspecified type; Z56.0 Unemployment, unspecified; Z79.899 Other long term (current) drug therapy; Z79.891 Long term (current) use of opiate analgesic; Z98.890 Other specified postprocedural states; Z98.1 Arthrodesis status; Z88.1 Allergy status to other antibiotic agents; Z91.040 Latex allergy status; Z83.3 Family history of diabetes mellitus; Z82.49 Family history of ischemic heart disease and other diseases of the circulatory system
CPT/HCPCS: 36573; 71046; 72100; 80048; 80053; 80202; 81003; 82565; 83036; 85025; 85027; 85610; 85652; 85730; 86140; 87040; 87070; 87075; 87102; 87205; 93005

== ENCOUNTER → 2020-12-02 | Outpatient (CLI) | payer OTHER ==
[~2020-12-02] MED LIST: BENZOCAINE/MENTHOL LOZENG 1 EACH LOZENGE MUCOUS MEM PRN; HYDROcodone/APAP 5-325MG 1 EACH TAB PO PRN; HYDROmorphone 0.5 MG/0.5 ML SYRINGE IVP PRN; HYDROmorphone 1 MG/ML 1 ML SYRINGE IVP PRN; HYDROmorphone 2 MG/ML 1 ML SYRINGE IVP PRN; NON FORMULARY DRUG (Citalopram Hydrobromide [Celexa] 40 MG Tablet) PO SCH; OLANZAPINE 20 MG PO SCH; ONDANSETRON 4 MG/2 ML VIAL IVP PRN; SENNOSIDES-DOCUSATE SODIUM 1 EACH TAB PO SCH; SODIUM CHLORIDE 0.9% 1,000 ML IV SCH; VANCOMYCIN IV PER PHARMACY 1 EACH MISC MISCELLANE PRN; diazePAM 5 MG TAB PO PRN
[2020-12-02 10:12] LABS: Basophils % (A) 0 %; Eosinophils # (A) 0.3 k/uL (0-0.7); Eosinophils % (A) 3 %; HCT 44.6 % (39.0-53.0); Lymphocytes # (A) 2.1 k/uL (1.0-4.8); Lymphocytes % (A) 28 %; MCH 33.2 pg (25.0-35.0); MCHC 33.5 g/dL (31.0-37.0); MCV 98.9 fL (80.0-100.0); Mean Platelet Volume 7.3; Monocytes # (A) 0.6 k/uL (0-1.0); Monocytes % (A) 8 %; Neutrophils # (A) 4.5 k/uL (1.3-7.7); Neutrophils % (A) 59 %; Platelet Count 316 k/uL (150-450); RBC 4.51 m/uL (4.30-5.90); RDW 13.3 % (11.5-15.5); WBC 7.6 k/uL (3.8-10.6)
[2020-12-02 10:22] LABS: ALT 11 U/L (4-49); AST 20 U/L (17-59); African American GFR (CKD) >90 (>60 ml/min/1.73 sqM); Alkaline Phosphatase 71 U/L (38-126); Anion Gap 8 mmol/L; Blood Urea Nitrogen 10 mg/dL (9-20); Calcium 8.8 mg/dL (8.4-10.2); Carbon Dioxide 24 mmol/L (22-30); Chloride 107 mmol/L (98-107); Glucose 96 mg/dL (74-99); Non-African American GFR(CKD) >90 (>60 ml/min/1.73 sqM); Potassium 4.4 mmol/L (3.5-5.1); Sodium 139 mmol/L (137-145); Total Bilirubin 0.2 mg/dL (0.2-1.3); Total Protein 7.3 g/dL (6.3-8.2)
--- NOTE | 2020-12-02 10:22 | XR ---
EXAMINATION TYPE: XR chest 2V DATE OF EXAM: 12/02/2020 COMPARISON: 06/22/2011 TECHNIQUE: PA and lateral views submitted. HISTORY: Pain, abscess FINDINGS: The lungs are clear and there is no pneumothorax, pleural effusion, or focal pneumonia. Postsurgica l change overlying the cervical spine. No overt failure. Hypertrophic and degenerative changes of the spine. IMPRESSION: 1. No acute process.
[2020-12-02 10:27] LABS: INR 0.9 (<1.2); Partial Thromboplastin Time 29.2 sec (22.0-30.0); Prothrombin Time 9.7 sec (9.0-12.0)
[2020-12-02 10:38] LABS: Appearance,Urine Clear (Clear); Bilirubin,Urine Negative (Negative); Blood,Urine Negative (Negative); Color,Urine Light Yellow; Glucose,Urine (UA) Negative (Negative); Ketones,Urine Negative (Negative); Leukocyte Esterase,Urine Negative (Negative); Nitrite,Urine Negative (Negative); Protein,Urine Negative (Negative); Specific Gravity,Urine 1.008 (1.001-1.035); Urobilinogen,Urine <2.0 mg/dL (<2.0)
[2020-12-05 09:33] LABS: Basophils % (A) 1 %; Eosinophils # (A) 0.1 k/uL (0-0.7); Eosinophils % (A) 2 %; HCT 34.4 % (39.0-53.0); HGB 12.1 gm/dL (13.0-17.5); Lymphocytes # (A) 1.8 k/uL (1.0-4.8); Lymphocytes % (A) 35 %; MCV 97.2 fL (80.0-100.0); Mean Platelet Volume 7.7; Monocytes # (A) 0.4 k/uL (0-1.0); Monocytes % (A) 8 %; Neutrophils # (A) 2.8 k/uL (1.3-7.7); Neutrophils % (A) 54 %; Platelet Count 225 k/uL (150-450); RBC 3.54 m/uL (4.30-5.90); RDW 13.2 % (11.5-15.5); WBC 5.1 k/uL (3.8-10.6)
== END | disposition home or self-care (01) ==
LOC: LABPAT 08:43
PROVIDERS: ATTEND Orthopaedic Surgery Orthopaedic Surgery of the Spine
DX: Z01.818 Encounter for other preprocedural examination (principal); L02.31 Cutaneous abscess of buttock
CPT/HCPCS: 71046; 80053; 81003; 85025; 85610; 85730; 93005

== ENCOUNTER → 2021-01-27 | Outpatient (CLI) | payer OTHER ==
[2021-01-27 19:23] LABS: Basophils # (A) 0.05 X 10*3/uL (0.00-0.10); Basophils % (A) 0.9 %; Eosinophils # (A) 0.38 X 10*3/uL (0.04-0.35); Eosinophils % (A) 6.6 %; HCT 44.4 % (39.6-50.0); HGB 14.7 g/dL (13.0-17.0); Lymphocytes # (A) 2.15 X 10*3/uL (0.90-5.00); Lymphocytes % (A) 37.3 %; MCHC 33.1 g/dL (32.0-37.0); MCV 96.5 fL (80.0-97.0); Mean Platelet Volume 10.6 fL (9.5-12.2); Monocytes # (A) 0.61 X 10*3/uL (0.20-1.00); Monocytes % (A) 10.6 %; Neutrophils # (A) 2.56 X 10*3/uL (1.80-7.70); Neutrophils % (A) 44.4 %; Platelet Count 278 X 10*3/uL (140-440); RDW 14.6 % (11.5-14.5); WBC 5.76 X 10*3/uL (4.50-10.00)
[2021-01-27 21:37] LABS: African American GFR (CKD) 122.4 (60.0-200.0); Anion Gap 4.4 mmol/L (4.00-12.00); BUN/Creat Ratio 8.75 Ratio (12.00-20.00); C Reactive Protein 0.5 mg/dL (0.0-0.8); Calcium 8.9 mg/dL (8.7-10.3); Carbon Dioxide 23.6 mmol/L (21.6-31.8); Non-African American GFR(CKD) 105.6 (60.0-200.0); Potassium 4.8 mmol/L (3.5-5.5)
[2021-01-27 22:50] LABS: Erythrocyte Sedimentation Rate 13 mm/Hr (0-15)
== END | disposition home or self-care (01) ==
LOC: LABWHC1 11:22
PROVIDERS: ATTEND Internal Medicine Infectious Disease
DX: M60.08 Infective myositis, other site (principal)
CPT/HCPCS: 36415; 80048; 85025; 85652; 86140

== ENCOUNTER → 2021-11-26 | Outpatient (CLI) | payer OTHER ==
[2021-11-26 18:56] LABS: Basophils # (A) 0.03 X 10*3/uL (0.00-0.10); Basophils % (A) 0.3 %; Eosinophils # (A) 0.19 X 10*3/uL (0.04-0.35); Eosinophils % (A) 1.7 %; HCT 46.5 % (39.6-50.0); HGB 15.9 g/dL (13.0-17.0); Immature Grans, Automated 0.4 %; Lymphocytes % (A) 17.7 %; MCH 33.7 pg (27.0-32.0); MCHC 34.2 g/dL (32.0-37.0); MCV 98.5 fL (80.0-97.0); Monocytes # (A) 0.79 X 10*3/uL (0.20-1.00); NRBC Per 100 WBC 0 /100 WBCS (0.0-0.0); Neutrophils # (A) 8.28 X 10*3/uL (1.80-7.70); Neutrophils % (A) 72.9 %; Platelet Count 238 X 10*3/uL (140-440); RBC 4.72 X 10*6/uL (4.40-5.60); RDW 13.1 % (11.5-14.5); WBC 11.33 X 10*3/uL (4.50-10.00)
[2021-11-26 19:50] LABS: African American GFR (CKD) 99.6 (60.0-200.0); Albumin 4.5 g/dL (3.8-4.9); Albumin/Globulin Ratio 1.46 (1.60-3.17); Anion Gap 13.2 mmol/L (10.00-18.00); BUN/Creat Ratio 10.88 Ratio (12.00-20.00); Blood Urea Nitrogen 11.1 mg/dL (9.0-27.0); Carbon Dioxide 20.7 mmol/L (20.0-27.5); Globulin 3.1 g/dL (1.6-3.3); Non-African American GFR(CKD) 85.9 (60.0-200.0); Total Bilirubin 0.3 mg/dL (0.30-1.20); Total Protein 7.6 g/dL (6.2-8.2)
[2021-11-26 21:03] LABS: Anti-Smith Ab Interp NEGATIVE (NEGATIVE); DNA Double-Stranded NEGATIVE (NEGATIVE)
== END | disposition home or self-care (01) ==
LOC: LABWHC1 13:18
PROVIDERS: ATTEND Dermatology
DX: L93.2 Other local lupus erythematosus (principal)
CPT/HCPCS: 36415; 80053; 85025; 86038; 86225; 86235

== ENCOUNTER 2021-11-27 17:36 | Emergency (ER) | payer OTHER ==
[2021-11-27 19:10] LABS: Basophils % (A) 1 %; Eosinophils # (A) 0.2 k/uL (0-0.7); Eosinophils % (A) 3 %; HCT 45.7 % (39.0-53.0); Lymphocytes # (A) 2.1 k/uL (1.0-4.8); Lymphocytes % (A) 34 %; MCH 35.3 pg (25.0-35.0); MCHC 34.9 g/dL (31.0-37.0); Macrocytosis Slight; Mean Platelet Volume 7.6; Monocytes # (A) 0.5 k/uL (0-1.0); Monocytes % (A) 8 %; Neutrophils # (A) 3.2 k/uL (1.3-7.7); Neutrophils % (A) 53 %; Platelet Count 207 k/uL (150-450); RBC 4.52 m/uL (4.30-5.90); RDW 13.4 % (11.5-15.5); WBC 6.1 k/uL (3.8-10.6)
--- NOTE | 2021-11-27 19:14 | XR ---
EXAMINATION TYPE: XR chest 2V DATE OF EXAM: 11/27/2021 6:13 PM COMPARISON:Chest radiographs from 12/02/2020 TECHNIQUE: XR chest 2V Frontal and lateral views of the chest. CLINICAL INDICATION:Male, 51 years old with history of Chest Pain; FINDINGS: Lungs/Pleura: There is no evidence of pleural effusion, focal consolidation, or pneumothorax. Pulmonary vascularity: Unremarkable. Heart/mediastinum: Cardiomediastinal silhouette is unremarkable. Musculoskeletal: No acute osseous pathology. There is fixation hardware in the lower cervical spine. IMPRESSION: No acute cardiopulmonary disease/process.
[2021-11-27 19:18] LABS: INR 0.9 (<1.2); Prothrombin Time 10.3 sec (9.0-12.0)
[2021-11-27 19:19] LABS: Partial Thromboplastin Time 30.8 sec (22.0-30.0)
[2021-11-27 19:20] LABS: ALT 36 U/L (4-49); AST 37 U/L (17-59); African American GFR (CKD) >90 (>60 ml/min/1.73 sqM); Albumin 4.6 g/dL (3.5-5.0); Alkaline Phosphatase 61 U/L (38-126); Anion Gap 10 mmol/L; Blood Urea Nitrogen 13 mg/dL (9-20); Calcium 8.9 mg/dL (8.4-10.2); Carbon Dioxide 20 mmol/L (22-30); Chloride 108 mmol/L (98-107); Glucose 107 mg/dL (74-99); Magnesium 1.9 mg/dL (1.6-2.3); Non-African American GFR(CKD) >90 (>60 ml/min/1.73 sqM); Potassium 4.1 mmol/L (3.5-5.1); Sodium 138 mmol/L (137-145); Total Bilirubin 0.5 mg/dL (0.2-1.3); Total Protein 7.9 g/dL (6.3-8.2)
[2021-11-27] MEDS ORDERED: IPRATROPIUM-ALBUTEROL 3 ML NEB INHALATION STA (20:07)
[2021-11-27] MEDS ORDERED: KETOROLAC 15 MG/ML 1 ML VIAL IM STA (20:07)
[2021-11-27] MEDS ORDERED: predniSONE 20 MG TAB PO STA (20:07)
[2021-11-27] MEDS ORDERED: ASPIRIN 81 MG PO STA (20:07)
--- NOTE | 2021-11-27 21:47 | ED ---
General Adult HPI - General Chief complaint: Chest Pain Stated complaint: Chest pains Time Seen by Provider: 11/27/21 19:22 Source: patient, RN notes reviewed, old records reviewed Mode of arrival: ambulatory Limitations: no limitations - History of Present Illness Initial comments: Patient is a 51-year-old male with past medical history remarkable for diabetes, bipolar disease who presents emergency Department complaining of chest discomfort. States this comes and goes over the last week. Describes is as a tightness located over bilateral chest. Occurred again today which is why he came to the department for further evaluation. Endorses mild shortness of breath as well. Doesn't history of COPD but does not use inhalers. Denies any fevers or cough. No abdominal pain, nausea, vomiting. No fevers. No other acute complaints at this time. Presents over concern for chest pain and shortness breath. - Related Data Home Medications Medication Instructions Recorded Confirmed Citalopram Hydrobromide [CeleXA] 40 mg PO HS 06/10/17 11/27/21 Hydrocodone/Acetaminophen [[place] 1 tab PO QID 06/10/17 11/27/21 7.5-325] Cetirizine HCl [Zyrtec] 10 mg PO DAILY 11/27/21 11/27/21 Cholecalciferol [Vitamin D3 (25 50 mcg PO DAILY 11/27/21 11/27/21 Mcg = 1000 Iu)] Clobetasol Propionate [Temovate 1 applic TOPICAL BID PRN 11/27/21 11/27/21 0.05% Cream] Fluorometholone 0.1% Ophth Katie 1 drops BOTH EYES BID 11/27/21 11/27/21 [Fml] Latanoprost/Pf [Latanoprost 0.005% 1 drop BOTH EYES HS 11/27/21 11/27/21 Eye Drop] OLANZapine [ZyPREXA] 10 mg PO HS 11/27/21 11/27/21 Triamcinolone 0.025% Cream 1 applic TOPICAL BID PRN 11/27/21 11/27/21 [Kenalog 0.025% Cream] Previous Rx's Medication Instructions Recorded Albuterol Inhaler [Ventolin Hfa 1 puff INHALATION RT-QID #8 gm 11/27/21 Inhaler] predniSONE [Deltasone] 40 mg PO DAILY 5 Days #10 tab 11/27/21 Allergies Allergy/AdvReac Type Severity Reaction Status Date / Time clindamycin Allergy Rash/Hives Verified 11/27/21 20:28 Penicillins Allergy Unknown Verified 11/27/21 20:28 sulfamethoxazole Allergy Dyspnea Verified 11/27/21 20:28 [From Bactrim] trimethoprim [From Bactrim] Allergy Dyspnea Verified 11/27/21 20:28 Review of Systems ROS Statement: Those systems with pertinent positive or pertinent negative responses have been documented in the HPI. ROS Other: All systems not noted in ROS Statement are negative. Past Medical History Past Medical History: Diabetes Mellitus Additional Past Medical History / Comment(s): bipolar. Diet-controlled diabetic. LUPUS History of Any Multi-Drug Resistant Organisms: None Reported Past Surgical History: Back Surgery Additional Past Surgical History / Comment(s): Multiple back surgeries; fusion of L4-5, L5-S1 Replacement at L4-5 2006. Laminectomy - 1998 Past Psychological History: ADD/ADHD, Anxiety, Bipolar, Depression Smoking Status: Current every day smoker Past Alcohol Use History: None Reported Past Drug Use History: Marijuana General Exam - General Exam Comments Initial Comments: General: Appears in no acute distress. HEAD: Normal with no signs of head trauma. EYES: PERRLA, EOMI, conjunctiva normal, no discharge. ENT: Hearing grossly intact, normal oropharynx. RESPIRATORY: Diffuse bilateral end expiratory wheezing. No hypoxia. No increased work of breathing. C/V: Regular rate and rhythm. S1 and S2 auscultated, no edema, peripheral pulses 2+ and intact throughout. Chest pain is reproducible on palpation. Also reproducible with movement of the left arm. ABD: Abd is soft, nontender, nondistended EXT: Normal range of motion, no obvious deformity SKIN: No rashes or lesions observed on exposed skin. NEURO: Alert and oriented 4. Limitations: no limitations Course Vital Signs 11/27/21 11/27/21 11/27/21 17:58 20:30 20:32 Temperature 98.1 F Pulse Rate 92 92 Pulse Rate [ 78 Zinc Chloride Operator ] Respiratory 16 20 Rate Blood Pressure 144/101 O2 Sat by Pulse 98 Oximetry 11/27/21 11/27/21 11/27/21 20:42 21:10 22:01 Temperature 98.2 F Pulse Rate 84 74 74 Pulse Rate [ Zinc Chloride Operator ] Respiratory 18 16 Rate Blood Pressure 127/90 127/88 O2 Sat by Pulse 96 98 Oximetry Medical Decision Making - Medical Decision Making Based on the patient's presentation and physical exam, does appear he is having an acute COPD/asthma exacerbation. Remainder of the exam is unremarkable. Cardiac workup was already obtained in triage and was remarkable for an EKG that showed no signs of acute ischemia. Chest x-ray revealed no acute cardiopulmonary process. Laboratory studies were remarkable for negative troponin. Remainder the labs are unremarkable. Patient was given an aspirin. I discussed with him that I believe his symptoms are likely secondary to COPD. He expressed understanding was in agreement. We will symptoms to treat the patient with a DuoNeb, I'm Toradol, as well as prednisone. We'll reevaluate him. He was in agreement with the plan. Following treatments, patient is feeling improved, chest tightness is resolved. I did expiratory wheezing is improved. He would like to go home. Heart score is low at 2. I believe it is reasonable for him to be discharged home at this time. He was in agreement with the plan. We went over all his laboratory studies and imaging. I will provide the patient with a prescription for prednisone 40 mg for 5 days, albuterol inhaler. I instructed the patient to follow up with their PCP in the next 3 days. I explained that the patient should return to the emergency department if they experience any worsening symptoms. Strict return precautions were discussed with the patient. The patient expressed understanding of these instructions. I answered all questions that the patient had. The patient was discharged home in good condition with their prescriptions and follow up information. - Lab Data Result diagrams: 11/27/21 18:48 11/27/21 18:48 Lab Results 11/27/21 11/27/21 11/27/21 Range/Units 18:48 18:48 18:48 WBC 6.1 (3.8-10.6) k/uL RBC 4.52 (4.30-5.90) m/uL Hgb 16.0 (13.0-17.5) gm/dL Hct 45.7 (39.0-53.0) % MCV 101.0 H (80.0-100.0) fL MCH 35.3 H (25.0-35.0) pg MCHC 34.9 (31.0-37.0) g/dL RDW 13.4 (11.5-15.5) % Plt Count 207 (150-450) k/uL MPV 7.6 Neutrophils % 53 % Lymphocytes % 34 % Monocytes % 8 % Eosinophils % 3 % Basophils % 1 % Neutrophils # 3.2 (1.3-7.7) k/uL Lymphocytes # 2.1 (1.0-4.8) k/uL Monocytes # 0.5 (0-1.0) k/uL Eosinophils # 0.2 (0-0.7) k/uL Basophils # 0.0 (0-0.2) k/uL Macrocytosis Slight PT 10.3 (9.0-12.0) sec INR 0.9 (<1.2) APTT 30.8 H (22.0-30.0) sec Sodium 138 (137-145) mmol/L Potassium 4.1 (3.5-5.1) mmol/L Chloride 108 H (98-107) mmol/L Carbon Dioxide 20 L (22-30) mmol/L Anion Gap 10 mmol/L BUN 13 (9-20) mg/dL Creatinine 0.86 (0.66-1.25) mg/dL Est GFR (CKD-EPI)AfAm >90 (>60 ml/min/1.73 sqM) Est GFR (CKD-EPI)NonAf >90 (>60 ml/min/1.73 sqM) Glucose 107 H (74-99) mg/dL Calcium 8.9 (8.4-10.2) mg/dL Magnesium 1.9 (1.6-2.3) mg/dL Total Bilirubin 0.5 (0.2-1.3) mg/dL AST 37 (17-59) U/L ALT 36 (4-49) U/L Alkaline Phosphatase 61 (38-126) U/L Troponin I (0.000-0.034) ng/mL Total Protein 7.9 (6.3-8.2) g/dL Albumin 4.6 (3.5-5.0) g/dL 11/27/21 Range/Units 18:48 WBC (3.8-10.6) k/uL RBC (4.30-5.90) m/uL Hgb (13.0-17.5) gm/dL Hct (39.0-53.0) % MCV (80.0-100.0) fL MCH (25.0-35.0) pg MCHC (31.0-37.0) g/dL RDW (11.5-15.5) % Plt Count (150-450) k/uL MPV Neutrophils % % Lymphocytes % % Monocytes % % Eosinophils % % Basophils % % Neutrophils # (1.3-7.7) k/uL Lymphocytes # (1.0-4.8) k/uL Monocytes # (0-1.0) k/uL Eosinophils # (0-0.7) k/uL Basophils # (0-0.2) k/uL Macrocytosis PT (9.0-12.0) sec INR (<1.2) APTT (22.0-30.0) sec Sodium (137-145) mmol/L Potassium (3.5-5.1) mmol/L Chloride (98-107) mmol/L Carbon Dioxide (22-30) mmol/L Anion Gap mmol/L BUN (9-20) mg/dL Creatinine (0.66-1.25) mg/dL Est GFR (CKD-EPI)AfAm (>60 ml/min/1.73 sqM) Est GFR (CKD-EPI)NonAf (>60 ml/min/1.73 sqM) Glucose (74-99) mg/dL Calcium (8.4-10.2) mg/dL Magnesium (1.6-2.3) mg/dL Total Bilirubin (0.2-1.3) mg/dL AST (17-59) U/L ALT (4-49) U/L Alkaline Phosphatase (38-126) U/L Troponin I <0.012 (0.000-0.034) ng/mL Total Protein (6.3-8.2) g/dL Albumin (3.5-5.0) g/dL - EKG Data -: EKG Interpreted by Me EKG Comments: 12-lead Electrocardiogram Interpretation Note EKG was reviewed and interpreted by myself. 12-lead ECG performed at 1848 is interpreted by me as revealing normal sinus rhythm at a rate of 77 beats per minute. Kemp is normal. AL interval is 157 ms, mosque 90 ms, QTc is 410 ms.. There were no ST or T wave abnormalities to suggest myocardial ischemia or injury. R wave progression across the precordium was satisfactory. By my interpretation this EKG is non-diagnostic for acute ischemia. Disposition Clinical Impression: COPD exacerbation Disposition: HOME SELF-CARE Condition: Good Instructions (If sedation given, give patient instructions): COPD (Chronic Obstructive Pulmonary Disease) (ED) Prescriptions: predniSONE [Deltasone] 40 mg PO DAILY 5 Days #10 tab Albuterol Inhaler [Ventolin Hfa Inhaler] 1 puff INHALATION RT-QID #8 gm Is patient prescribed a controlled substance at d/c from ED?: No Referrals: Shin Engel MD [Primary Care Provider] - 1-2 days
[2021-11-27 22:02] VITALS: BP 127/88; PULSE 74; RESP 16; TEMP 98.2
== END 2021-11-27 22:01 | disposition home or self-care (01) ==
LOC: EC 17:36
DX: J44.1 Chronic obstructive pulmonary disease with (acute) exacerbation (principal); E11.9 Type 2 diabetes mellitus without complications; F90.9 Attention-deficit hyperactivity disorder, unspecified type; F41.9 Anxiety disorder, unspecified; F31.9 Bipolar disorder, unspecified; F17.200 Nicotine dependence, unspecified, uncomplicated; F12.90 Cannabis use, unspecified, uncomplicated; Z88.0 Allergy status to penicillin; Z88.1 Allergy status to other antibiotic agents; Z88.2 Allergy status to sulfonamides
CPT/HCPCS: 99285; 96372; 36415; 94640; 93005; 80053; 83735; 84484; 85025; 85610; 85730; 71046; J1885; J7512

== ENCOUNTER → 2022-04-22 | Outpatient (CLI) | payer OTHER ==
--- NOTE | 2022-04-22 22:32 | MR ---
MRI CERVICAL SPINE: CLINICAL HISTORY: Numbness tingling into right arm. Severe right-sided neck pain. TECHNIQUE: Multiplanar, multisequence imaging of the cervical spine is performed without IV contrast. COMPARISON: MRI cervical spine December 14, 2015. FINDINGS: Sagittal images of the cervical spine show the craniocervical junction to remain within nor mal limits. The cervical and upper thoracic spinal cord remains normal in course, caliber, and signa l. Vertebral alignment is stable. Artifact from anterior fusion hardware C6-C7 level is now present. The vertebral body and intravertebral disk heights are normal above and below surgical levels. The bone marrow signal intensity is within normal limits above and below surgical levels. Axial images redemonstrated C2-C3 through C5-C6 levels to appear within normal limits. Tiny posterior disc herniations minimally effaces the anterior thecal sac at C3-C4 and C5-C6 levels on sagittal ariel ges new to from prior. Axial images at C6-C7 level show artifact from surgical change, there is persistent lobulated broad-b ased disc protrusion less prominent than prior. Less effacement of the anterior thecal sac is noted. Persistent mild to moderate left greater than right bilateral neural foraminal narrowing is seen. Axial images at C7-T1 levels show new lobulated posterior disc protrusion minimally effacing anterior thecal sac and causing mild to moderate right greater than left bilateral neural foraminal narrowing . IMPRESSION: Interval surgical change at the C6-C7 level with stable and satisfactory alignment. Impro lele disc herniation at this level noted. Some new mild multilevel degenerative changes are present as detailed above..
== END | disposition home or self-care (01) ==
LOC: RADMRIMAIN 21:00
PROVIDERS: ATTEND Neurological Surgery
DX: M50.323 Other cervical disc degeneration at C6-C7 level (principal); M99.71 Connective tissue and disc stenosis of intervertebral foramina of cervical region
CPT/HCPCS: 72141

== ENCOUNTER → 2023-12-31 | Outpatient (CLI) | payer OTHER ==
--- NOTE | 2024-01-01 08:34 | MR ---
EXAMINATION TYPE: MR cervical spine wo con DATE OF EXAM: 12/31/2023 5:05 PM COMPARISON: NONE HISTORY: Pain right side of neck into both sides, Tingling Left arm to fingers, Multiplanar MultiSpin echo imaging of the cervical spine was performed. Comparison: 04/22/2022 C2-C3: No evidence for degenerative disc disease. No disc bulge/herniation or protrusion. No Canal stenosis. Foramina are patent bilaterally. C3-C4: Moderate disc desiccation with decreased signal and loss of height compatible with degenerativ e disc disease. Right paracentral disc bulge with small spur resulting in moderate right-sided neural foraminal encroachment. No evidence for central stenosis or disc herniation. C4-C5: No evidence for degenerative disc disease. No disc bulge/herniation or protrusion. No Canal stenosis. Foramina are patent bilaterally. C5-C6: No evidence for degenerative disc disease. No disc bulge/herniation or protrusion. No Canal stenosis. Foramina are patent bilaterally. C6-C7: Postoperative changes of ACDF with anterior fixation plate in place. Stable postoperative alig nment. No evidence for recurrent or residual disease. C7-T1: No evidence for degenerative disc disease. No disc bulge/herniation or protrusion. No Canal stenosis. Foramina are patent bilaterally. Cervical segments are intact. There is normal alignment. Cervical spinal cord is of normal signal. Craniovertebral junction relationships are within normal limits. IMPRESSION: 1. Stable postoperative appearance of ACDF at C6-7. 2. Degenerative disc disease with disc bulge and spurring resulting in right foraminal encroachment a t C3-4 as outlined above.
== END | disposition home or self-care (01) ==
LOC: RADMRIMAIN 15:59
PROVIDERS: ATTEND Neurological Surgery
DX: M50.31 Other cervical disc degeneration, high cervical region (principal); M50.10 Cervical disc disorder with radiculopathy, unspecified cervical region
CPT/HCPCS: 72141